=== PATIENT | male | born 1940 | race Caucasian/White ===

== ENCOUNTER → 2018-08-02 | Day surgery (SDC) | payer MEDICARE, BC ==
[~2018-08-02] MED LIST: ASPIR 8181 MG PO; ATORVASTATIN CA20 MG PO; BENEFIBER1 EAC1 PO; CITRACAL + D E1 EACH PO; FENTANYL CITRATE/PF 100MCG/2 ML INJ ONE; FLOMAX0.4 MG PO; GLIPIZIDE5 MG PO; LISINOPRIL2.5 MG PO; METFORMIN HCL500 M1 PO; MIDAZOLAM HCL 2 MG/2 ML VIAL ONE; PROPOFOL IV EMULSION 10 MG/ML 50 ML VIAL ONE
--- OUTSIDE RECORDS SUMMARY | 2018-08-02 05:59 | XMS REPORT | CCD ---
Author Author Auto Generated Organization [facility] Address Unknown Phone Unavailable Care Team Providers Care Veterinary Bacteriologist Name Role Phone [place] [facility] Allergies, Adverse Reactions, Alerts Substance Reaction Status NKDA Active Problem List Condition Effective Dates Status BPH - Benign prostatic hypertrophy Active DM - Diabetes mellitus Resolved HTN - Hypertension Resolved Medications Medication Instructions Start Date End Date Status morphine Sulfate 2 mg, 1 mL, Route: IVP, Drug form: 06/05/2013 06/05/2013 Completed INJ, ONCE, Dosing Weight 81.818, kg, Priority: STAT, Start date: 06/05/13 22:59:00, Stop date: 06/05/13 22:59:00 Zofran 4 mg, 2 mL, Route: IVP, Drug form: 06/05/2013 06/05/2013 Completed INJ, ONCE, Dosing Weight 81.818, kg, Priority: STAT, Start date: 06/05/13 22:23:00, Stop date: 06/05/13 22:23:00 Tylenol with Codeine 1 - 2 tab, PO, Q4H, PRN, 20 tab, 06/05/2013 06/07/2013 Completed #3 oral tablet Pain, Substitution Allowed, Maintenance morphine Sulfate 2 mg, 1 mL, Route: IVP, Drug form: 06/05/2013 06/05/2013 Completed INJ, ONCE, Dosing Weight 81.818, kg, Priority: STAT, Start date: 06/05/13 22:23:00, Stop date: 06/05/13 22:23:00 pneumococcal 0.5 ml, Route: IM, Drug Form: INJ, 06/08/2013 06/08/2013 Completed 23-valent vaccine Start date: 06/08/13 9:00:00, Stop date: 06/08/13 9:00:00 influenza virus 0.5 ml, Route: IM, Drug Form: SUSP, 06/08/2013 06/08/2013 Completed vaccine, inactivated Start date: 06/08/13 9:00:00, Stop date: 06/08/13 9:00:00 Immunizations Vaccine Date Status influenza virus vaccine, inactivated 06/08/2013 Auth (Verified) pneumococcal 23-valent vaccine 06/08/2013 Auth (Verified) Vital Signs Most recent to oldest [Reference Range]: 1 2 Height 162.56 cm (06/05/2013 16:49:00) Temperature Oral [96.4-99.1 DegF] 98.3 DegF (06/05/2013 23:35:00) 98.0 DegF (06/05/2013 16:49:00) Systolic Blood Pressure [90-140 mmHg] 141 mmHg *HI* (06/05/2013 23:35:00) 159 mmHg *HI* (06/05/2013 16:49:00) Diastolic Blood Pressure [60-90 mmHg] 75 mmHg (06/05/2013 23:35:00) 78 mmHg (06/05/2013 16:49:00) Respiratory Rate [14-20 BRMIN] 18 BRMIN (06/05/2013 23:35:00) 18 BRMIN (06/05/2013 16:49:00) Peripheral Pulse Rate [60-100 bpm] 81 bpm (06/05/2013 23:35:00) 70 bpm (06/05/2013 16:49:00) Weight 81.818 kg (06/05/2013 16:49:00) Results CHEMISTRY Most recent to oldest [Reference Range]: 1 Sodium Lvl [135-145 mEq/L] 143 mEq/L (06/05/2013 21:40:00) Potassium Lvl [3.5-5.1 mEq/L] 4.1 mEq/L (06/05/2013 21:40:00) Chloride Lvl [95-109 mEq/L] 107 mEq/L (06/05/2013 21:40:00) CO2 [24-32 mEq/L] 26 mEq/L (06/05/2013 21:40:00) AGAP [10.0-20.0 mEq/L] 14.1 mEq/L (06/05/2013 21:40:00) Creatinine Lvl [0.5-1.4 mg/dL] 1.2 mg/dL (06/05/2013 21:40:00) eGFR 60 mL/min/1.73m2 1 *NA* (06/05/2013:40:00) BUN [7-22 mg/dL] 16 mg/dL (06/05/2013:40:00) Glucose Lvl [70-99 mg/dL] 147 mg/dL 2 *HI* (06/05/2013:40:00) Calcium Lvl [8.5-10.5 mg/dL] 8.6 mg/dL (06/05/2013:40:00) 1Result Comment: The eGFR is calculated using the CKD-EPI formula. In most young, healthy individuals the eGFR will be >90 mL/min/1.73m2. The eGFR declines with age. An eGFR of 60-89 may be normal in some populations, particularly the elderly, for whom the CKD-EPI formula has not been extensively validated. Use of the eGFR is not recommended in the following populations: Individuals with unstable creatinine concentrations, including patients and those with serious co-morbid conditions. Patients with extremes in muscle mass or diet. The data above are obtained from the National Kid[employer] Disease Education Program ( NKDEP) which additionally recommends that when the eGFR is used in patients with extremes of body mass index for purposes of drug dosing, the eGFR should be mul tiplied by the estimated BMI. 2Interpretive Data: Adult reference range values reflect the clinical guidelines of the [employer]. HEMATOLOGY Most recent to oldest [Reference Range]: 1 WBC [3.7-10.4 K/CMM] 8.0 K/CMM (06/05/2013:40:00) RBC [4.70-6.10 M/CMM] 4.33 M/CMM *LOW* (06/05/2013:40:00) Hgb [14.0-18.0 g/dL] 12.9 g/dL *LOW* (06/05/2013:40:00) Hct [42.0-54.0 %] 39.0 % *LOW* (06/05/2013:40:00) MCV [80.0-94.0 fL] 90.1 fL (06/05/2013:40:00) MCH [27.0-31.0 pg] 29.8 pg (06/05/2013 21:40:00) MCHC [32.0-36.0 g/dL] 33.0 g/dL (06/05/2013 21:40:00) RDW [11.5-14.5 %] 12.7 % (06/05/2013 21:40:00) Platelet [133-450 K/CMM] 195 K/CMM (06/05/2013 21:40:00) MPV [7.4-10.4 fL] 10.6 fL *HI* (06/05/2013 21:40:00) Segs [45.0-75.0 %] 63.9 % (06/05/2013 21:40:00) Lymphocytes [20.0-40.0 %] 23.2 % (06/05/2013 21:40:00) Monocytes [2.0-12.0 %] 9.2 % (06/05/2013 21:40:00) Eosinophils [0.0-4.0 %] 1.9 % (06/05/2013 21:40:00) Basophils [0.0-1.0 %] 1.8 % *HI* (06/05/2013 21:40:00) Segs-Bands # [1.5-8.1 K/CMM] 5.1 K/CMM (06/05/2013 21:40:00) Lymphocytes # [1.0-5.5 K/CMM] 1.9 K/CMM (06/05/2013 21:40:00) Monocytes # [0.0-0.8 K/CMM] 0.7 K/CMM (06/05/2013 21:40:00) Eosinophils # [0.0-0.5 K/CMM] 0.2 K/CMM (06/05/2013 21:40:00) Basophils # [0.0-0.2 K/CMM] 0.1 K/CMM (06/05/2013 21:40:00)
--- OUTSIDE RECORDS SUMMARY | 2018-08-02 05:59 | XMS REPORT | Continuity of Care Document ---
Author Author [facility] Interface Address Unknown Phone Unavailable Problems Problem Status Onset Date Classification Date Reported Comments Source K46.9 / M62.08 Active 02/01/2017 [facility] NECK MASS Active 01/24/2016 [facility] UNK Active 12/11/2015 [facility] LEFT LEG RADICULOPATHY Active 06/07/2013 [facility] LEFT LEG PAIN Active 06/07/2013 [facility] LEG PAIN Active 06/05/2013 [facility] Bleeding internal hemorrhoids<sup>1, 2</sup> Active 12/18/2011 Problem 02/06/2017 Data migrated from [employer] on 01/28/15. [facility] Rectal hemorrhage<sup>3, 4</sup> Active 12/18/2011 Problem 02/06/2017 Data migrated from [employer] on 01/28/15. [facility] Residual hemorrhoidal skin tags<sup>5, 6</sup> Active 12/18/2011 Problem 02/06/2017 Data migrated from [employer] on 01/28/15. [facility] V12.72 Active 12/18/2011 [facility] BPH - Benign prostatic hypertrophy Active Problem 02/06/2017 [facility] CAD - Coronary artery disease Active Problem 02/06/2017 [facility] DM - Diabetes mellitus Active Problem 02/06/2017 [facility] Heart murmur Active Problem 02/06/2017 [facility] HTN - Hypertension Active Problem 02/06/2017 [facility] Obesity Active Problem 02/06/2017 [facility] BPH - Benign prostatic hypertrophy Active Problem 06/10/2013 [facility] DM - Diabetes mellitus Resolved Problem 06/10/2013 [facility] HTN - Hypertension Resolved Problem 06/10/2013 [facility] PRSNL HST COLONIC POLYPS Active [facility] NEURALGIA/NEURITIS NOS Active [facility] RESIDUAL HEMORRHOIDAL SKIN TAGS Active [facility] PERSONAL HISTORY OF COLONIC POLYPS Active [facility] OTHER HEMORRHOIDS Active [facility] LOCALIZED SWELLING, MASS AND LUMP, NECK Active [facility] UNSPECIFIED ABDOMINAL HERNIA WITHOUT OBS Active [facility] SEPARATION OF MUSCLE (NONTRAUMATIC), OTH Active [facility] Medications Medication Details Route Status Patient Instructions Ordering Provider Order Date Source ketOROLAC (ANES) IV, ONCE Inactive 01/15/2016 [facility] fentaNYL (ANES) Route: IV, Drug form: INJ, ONCE, Stop date: 01/15/16 13:00:00 CDT Inactive 01/15/2016 [facility] ondansetron (ANES) Route: IV, Drug form: INJ, ONCE, Stop date: 01/15/16 13:00:00 CDT Inactive 01/15/2016 [facility] propofol (ANES) Route: IV, Drug form: INJ, ONCE, Stop date: 01/15/16 12:55:00 CDT Inactive 01/15/2016 [facility] lidocaine (ANES) Route: IV, Drug form: INJ, ONCE, Stop date: 01/15/16 12:55:00 CDT Inactive 01/15/2016 [facility] midazolam (ANES) Route: IV, Drug form: SOLN, ONCE, Stop date: 01/15/16 12:55:00 CDT Inactive 01/15/2016 [facility] acetaminophen (ANES) (ANES) Route: IV, Drug form: INJ, Start date: 01/15/16 12:25:00 CDT, Stop date: 01/15/16 13:25:00 CDT Inactive 01/15/2016 [facility] Lactated Ringers Injection IV (ANES) (ANES) Route: IV, Total Volume: 500, Start date: 01/15/16 12:10:00 CDT, Stop date: 01/15/16 13:10:00 CDT Inactive 01/15/2016 [facility] Acetaminophen 300 MG / Codeine Phosphate 30 MG Oral Tablet [Tylenol with Codeine #3] 1 tab, PO, Q6H, PRN for pain, # 30 tab, 0 Refill(s) Active 01/15/2016 [facility] Calcium Chloride 0.0014 MEQ/ML / Potassium Chloride 0.004 MEQ/ML / Sodium Chloride 0.103 MEQ/ML / Sodium Lactate 0.028 MEQ/ML Injectable Solution 500 mL, Rate: 25 ml/hr, Infuse over: 20 hr, Route: IV, Dosing Weight 85 kg, Total Volume: 500, Start date: 01/15/16 11:15:00 CDT, Duration: 30 day, Stop date: 02/14/16 11:14:00 CDT Inactive 01/15/2016 [facility] Normosol-R 1,000 mL, Rate: 25 ml/hr, Infuse over: 40 hr, Route: IV, Dosing Weight 85 kg, Total Volume: 1,000, Start date: 01/15/16 11:15:00 CDT, Duration: 30 day, Stop date: 02/14/16 11:14:00 CDT Inactive 01/15/2016 [facility] Glucose 50 MG/ML / Sodium Chloride 0.154 MEQ/ML Injectable Solution 1,000 mL, Rate: 25 ml/hr, Infuse over: 40 hr, Route: IV, Dosing Weight 85 kg, Total Volume: 1,000, Start date: 01/15/16 11:15:00 CDT, Duration: 30 day, Stop date: 02/14/16 11:14:00 CDT Inactive 01/15/2016 [facility] Sodium Chloride 0.154 MEQ/ML Injectable Solution 500 mL, Rate: 125 ml/hr, Infuse over: 4 hr, Route: IV, Dosing Weight 85 kg, Total Volume: 500, Start date: 01/15/16 11:15:00 CDT, Duration: 30 day, Stop date: 02/14/16 11:14:00 CDT Inactive 01/15/2016 [facility] Exparel 20 mL, Route: InFILtration(local), Drug Form: INJ, Dosing Weight 85, kg, ONCALL, For Hemorrhoidectomy, Start date: 01/15/16 7:00:00 CDT, Duration: 30 day, Stop date: 02/14/16 6:59:00 CDTNotes: (Same as: Exparel) NOT FOR IV use Postoperative analgesia: Infiltration (local): Dose is based on surgical site and volume required to cover the area (in general, the maximum total dose is 266 mg). Bunionectomy: 7 mL into the tissues surrounding the osteotomy and 1 mL into the subcutaneous tissue of the surgical site (total dose=8 mL [106 mg]) Hemorrhoidectomy: 30 mL (20 mL vial diluted with 10 mL NS) divided and administered as 6 injections of 5 mL each (total dose=30 mL [266 mg]) No Longer Active 01/15/2016 [facility] Insulin Glargine 100 UNT/ML Injectable Solution [Lantus] 20 unit, SUB-Q, Bedtime, # 10 mL, 3 Refill(s) Active 01/08/2016 [facility] Aspirin Low Dose 81 mg oral tablet =1 tab, PO, Daily, # 30 tab, 1 Refill(s) Active 01/08/2016 [facility] Percocet 10/325 oral tablet 1 tab, PO, Q6H, PRN, 60 tab, as needed for pain, Substitution Allowed, Maintenance Active [place] 06/09/2013 [facility] Medrol Dosepak 4 mg Tablet As directed on package instructions, PO, Daily, Take with or without food, 1 Pack, Substitution AllowedTake with or without food Active [facility] 06/09/2013 [facility] Neurontin 100 mg oral capsule 100 mg, 1 cap, PO, TID, 90 cap, Substitution Allowed, CAP Active [facility] 06/09/2013 [facility] Lactated Ringers Injection IV 1000 mL 1,000 mL, Rate: 25 ml/hr, Infuse over: 40 hr, Route: IV, Dosing Weight 80.9 kg, Total Volume: 1,000, Start date: 06/09/13 13:15:00, Duration: 30 day, Stop date: 07/09/13 13:14:00 Inactive [place] 06/09/2013 [facility] Travatan Z 0.004% ophthalmic solution 1 drp, Route: BOTH EYES, Drug Form: SOLN, Dosing Weight 80.9, kg, QPM, Start date: 06/08/13 17:00:00, Duration: 30 day, Stop date: 07/07/13 17:00:00(Same As: Travatan) No Longer Active [facility] 06/08/2013 [facility] tamsulosin 0.4 mg, 1 cap, Route: PO, Drug form: CAP, QPM, Dosing Weight 80.9, kg, Start date: 06/08/13 17:00:00, Duration: 30 day, Stop date: 07/07/13 17:00:00(Same As: Flomax) "Do Not Crush" No Longer Active [facility] 06/08/2013 [facility] atorvastatin 20 mg, 2 tab, Route: PO, Drug form: TAB, QPM, Dosing Weight 80.9, kg, Start date: 06/08/13 17:00:00, Duration: 30 day, Stop date: 07/07/13 17:00:00(Same As: Lipitor) No Longer Active [facility] 06/08/2013 [facility] Neurontin 100 mg oral capsule 100 mg, 1 cap, Route: PO, Drug form: CAP, TID, Dosing Weight 80.9, kg, Start date: 06/08/13 13:00:00, Duration: 30 day, Stop date: 07/08/13 9:00:00(Same as: Neurontin) No Longer Active [facility] 06/08/2013 [facility] Medrol Dosepak 4 mg Tablet 4 mg, 1 tab, Route: PO, Drug form: TAB, QID-After Meals, Dosing Weight 80.9, kg, Start date: 06/08/13 13:00:00, Duration: 6 day, Stop date: 06/14/13 8:30:00(Same as :Medrol) Take with food No Longer Active [facility] 06/08/2013 [facility] [place] 5/325 oral tablet 2 tab, Route: PO, Drug Form: TAB, Dosing Weight 80.9, kg, Q6H, PRN Pain, Start date: 06/08/13 10:02:00, Duration: 30 day, Stop date: 07/08/13 10:01:00(Same as: [place] 325/5) Do not exceed 4gm/day of acetaminophen. No Longer Active [facility] 06/08/2013 [facility] pneumococcal 23-valent vaccine 0.5 ml, Route: IM, Drug Form: INJ, Daily, Start date: 06/08/13 9:00:00, Duration: 1 doses or times, Stop date: 06/08/13 9:00:00(Same as: Pneumovax 23) Refrigerate Inactive SYSTEM 06/08/2013 [facility] influenza virus vaccine, inactivated 0.5 ml, Route: IM, Drug Form: SUSP, Daily, Start date: 06/08/13 9:00:00, Duration: 1 doses or times, Stop date: 06/08/13 9:00:00(Same as: Fluzone) Inactive [facility] 06/08/2013 [facility] timolol ophthalmic 0.5% gel forming solution 1 drp, Route: BOTH EYES, QAM, Drug form: GFS, Start date: 06/08/13 9:00:00, Duration: 30 day, Stop date: 07/07/13 9:00:00 No Longer Active [facility] 06/08/2013 [facility] Citrucel 500 mg, Route: PO, Daily, Dosing Weight 80.9, kg, Start date: 06/08/13 9:00:00, Duration: 30 day, Stop date: 07/07/13 9:00:00 No Longer Active [facility] 06/08/2013 [facility] lisinopril 2.5 mg, 0.5 tab, Route: PO, Drug form: TAB, Daily, Dosing Weight 80.9, kg, Start date: 06/08/13 9:00:00, Duration: 30 day, Stop date: 07/07/13 9:00:00(Same as: Prinivil, Zestril) No Longer Active [facility] 06/08/2013 [facility] glipiZIDE 10 mg oral tablet, extended release 10 mg, 1 tab, Route: PO, Drug form: ERTAB, BID, Dosing Weight 80.9, kg, Start date: 06/08/13 9:00:00, Duration: 30 day, Stop date: 07/07/13 17:00:00(Same as: Glucotrol XL) "Do Not Crush" 30 min before meals. No Longer Active [facility] 06/08/2013 [facility] ferrous sulfate 325 mg, 1 tab, Route: PO, Drug form: ECTAB, Daily, Dosing Weight 80.9, kg, Start date: 06/08/13 9:00:00, Duration: 30 day, Stop date: 07/07/13 9:00:00Give with food. "Do Not Crush" No Longer Active [facility] 06/08/2013 [facility] [place] 5 microgram, Route: SUB-Q, Drug form: SOLN, BID, Dosing Weight 80.9, kg, Start date: 06/08/13 9:00:00, Duration: 30 day, Stop date: 07/07/13 17:00:00 No Longer Active [facility] 06/08/2013 [facility] Plavix 75 mg, 1 tab, Route: PO, Drug form: TAB, Daily, Dosing Weight 80.9, kg, Start date: 06/08/13 9:00:00, Duration: 30 day, Stop date: 07/07/13 9:00:00(Same As: Plavix) No Longer Active [facility] 06/08/2013 [facility] Timolol 0.5% opthalmic gel forming solution Timolol 0.5% opthalmic gel forming solution, 1 drp, Drug form: MISC, Route: BOTH EYES, QAM, 06/08/13 9:00:00, Duration: 30 day, Stop date: 07/07/13 9:00:00 No Longer Active [facility] 06/08/2013 [facility] Citrucel 500mg po daily*Patients own med* Citrucel 500mg po daily*Patients own med*, 500 mg, Drug form: MISC, Route: PO, Daily, 06/08/13 9:00:00, Duration: 30 day, Stop date: 07/07/13 9:00:00 No Longer Active [facility] 06/08/2013 [facility] [place] 5 microgram Sub-Q BID*Patient's own med [place] 5 microgram Sub-Q BID*Patient's own med, 5 microgram, Drug form: MISC, Route: SUB-Q, BID, 06/08/13 9:00:00, Duration: 30 day, Stop date: 07/07/13 17:00:00 No Longer Active [facility] 06/08/2013 [facility] morphine Sulfate 3 mg, 1.5 mL, Route: IVP, Drug form: INJ, Q4H, Dosing Weight 80.9, kg, PRN Pain Score 7-10, Start date: 06/08/13 0:05:00, Duration: 30 day, Stop date: 07/08/13 0:04:00(Same as:MORPhine Sulfate) No Longer Active [facility] 06/08/2013 [facility] enoxaparin 40 mg, 0.4 mL, Route: SUB-Q, Drug form: INJ, [id number], Dosing Weight 80.9, kg, Start date: 06/07/13 19:00:00, Duration: 30 day, Stop date: 07/06/13 19:00:00(Same as: Lovenox) No Longer Active [place] 06/08/2013 [facility] insulin aspart 15 unit, 0.15 mL, Route: SUB-Q, Drug form: SOLN, TID-Before Meals, Dosing Weight 80.9, kg, PRN Blood Glucose Results, Start date: 06/07/13 18:52:00, Duration: 30 day, Stop date: 07/07/13 18:51:00Roll in palms of hands gently; Do not shake vigorously. (Same as: NovoLog) "single patient use only" Stable for 28 days at room temperature. Expires in days from Date No Longer Active [facility] 06/07/2013 [facility] glucagon 1 mg, Route: IM, Drug form: PDR/INJ, PRN, Dosing Weight 80.9, kg, PRN Blood Glucose Results, Start date: 06/07/13 18:52:00, Duration: 30 day, Stop date: 07/07/13 17:51:00 No Longer Active [facility] 06/07/2013 [facility] Dextrose 50% Syringe 12.5 gm, 25 mL, Route: IVP, Drug Form: INJ, Dosing Weight 80.9, kg, PRN, PRN Blood Glucose Results, Start date: 06/07/13 18:52:00, Duration: 30 day, Stop date: 07/07/13 17:51:00 No Longer Active [facility] 06/07/2013 [facility] Dextrose 50% in Water IV 50 mL, Route: IVP, Start date: 06/07/13 18:39:00, Duration: 30 day, Stop date: 07/07/13 17:38:00, PRN Blood Glucose Results Inactive [facility] 06/07/2013 [facility] glucagon 1 mg, Route: IM, Drug form: PDR/INJ, PRN, PRN Blood Glucose Results, Start date: 06/07/13 18:39:00, Duration: 30 day, Stop date: 07/07/13 17:38:00 Inactive [facility] 06/07/2013 [facility] NovoLog FlexPen 18 unit, 0.18 mL, Route: SUB-Q, Drug form: SOLN, Sliding Scale, PRN Blood Glucose Results, Start date: 06/07/13 18:39:00, Duration: 30 day, Stop date: 07/07/13 17:38:00Roll in palms of hands gently; Do not shake vigorously. (Same as: NovoLog) "single patient use only" Stable for 28 days at room temperature. Expires in days from Date Inactive [facility] 06/07/2013 [facility] morphine Sulfate 2 mg, 1 mL, Route: IV, Drug form: INJ, Q6H, Dosing Weight 80.909, kg, PRN Pain Score 4-6, Start date: 06/07/13 18:19:00, Duration: 30 day, Stop date: 07/07/13 18:18:00(Same as:MORPhine Sulfate) No Longer Active [facility] 06/07/2013 [facility] Saline Flush 0.9% 5 ml, Route: IVP, Drug Form: INJ, Dosing Weight 80.909, kg, PRN, PRN Line Flush, Start date: 06/07/13 18:10:00, Duration: 30 day, Stop date: 07/07/13 17:09:00(Same as: BD Posiflush) No Longer Active [facility] 06/07/2013 [facility] Travatan Z 0.004% ophthalmic solution 1 drp, BOTH EYES, QPM, 3 ml, Substitution Allowed, Maintenance, SOLN Active [facility] 06/07/2013 [facility] timolol ophthalmic 0.5% gel forming solution 1 drp, BOTH EYES, QAM, Substitute Allowed Active [facility] 06/07/2013 [facility] ferrous sulfate 325 mg oral enteric coated tablet 325 mg, 1 tab, PO, Daily, 30 tab, Substitution Allowed, ECTAB Active [facility] 06/07/2013 [facility] [place] 10 mcg/0.04 mL subcutaneous solution 10 microgram, SUB-Q, BID, 2 ml, Substitution Allowed, SOLN Active [facility] 06/07/2013 [facility] Sodium Chloride 0.9% IV 1,000 mL 1,000 mL, Rate: 75 ml/hr, Infuse over: 13.3 hr, Route: IV, Dosing Weight 80.909 kg, Total Volume: 1,000, Priority: STAT, Start date: 06/07/13 12:54:00, Duration: 1 doses or times, Stop date: 06/08/13 2:11:00 Inactive [place] 06/07/2013 [facility] Kayexalate 30 gm, 120 mL, Route: PO, Drug form: SUSP, ONCE, Dosing Weight 80.909, kg, Priority: STAT, Start date: 06/07/13 12:54:00, Stop date: 06/07/13 12:54:00(sodium polystyrene sulfonate 15 gm/60 ml ALVINA) Shake well before use. (Same as: [place], SPS) Inactive [place] 06/07/2013 [facility] Tylenol with Codeine #3 oral tablet 1 - 2 tab, PO, Q4H, PRN, 20 tab, Pain, Substitution Allowed, Maintenance No Longer Active [facility] 06/06/2013 [facility] morphine Sulfate 2 mg, 1 mL, Route: IVP, Drug form: INJ, ONCE, Dosing Weight 81.818, kg, Priority: STAT, Start date: 06/05/13 22:59:00, Stop date: 06/05/13 22:59:00(Same as:MORPhine Sulfate) Inactive [facility] 06/06/2013 [facility] Zofran 4 mg, 2 mL, Route: IVP, Drug form: INJ, ONCE, Dosing Weight 81.818, kg, Priority: STAT, Start date: 06/05/13 22:23:00, Stop date: 06/05/13 22:23:00(Same as: Zofran) Inactive [facility] 06/06/2013 [facility] morphine Sulfate 2 mg, 1 mL, Route: IVP, Drug form: INJ, ONCE, Dosing Weight 81.818, kg, Priority: STAT, Start date: 06/05/13 22:23:00, Stop date: 06/05/13 22:23:00(Same as:MORPhine Sulfate) Inactive [facility] 06/06/2013 [facility] Lactated Ringers IV 1,000 mL 1,000 mL 1,000 mL, Rate: 40 ml/hr, Infuse over: 25 hr, Route: IV, Dosing Weight 80.909 kg, Total Volume: 1,000, Start date: 02/09/12 8:58:00, Duration: 30 day, Stop date: 03/10/12 8:57:00 IV No Longer Active [place] 02/09/2012 [facility] tamsulosin 0.4 mg oral capsule 0.4 mg, 1 cap, PO, Daily, 30 cap, Substitution Allowed, CAP PO Active 02/04/2012 [facility] Citrucel Substitution Allowed Active 02/04/2012 [facility] lisinopril 2.5 mg oral tablet 2.5 mg, 1 tab, PO, Daily, 30 tab, Substitution Allowed, TAB PO Active 02/04/2012 [facility] Plavix 75 mg oral tablet 75 mg, 1 tab, PO, Daily, 30 tab, Substitution Allowed, TAB PO Active 02/04/2012 [facility] glipiZIDE 10 mg oral tablet, extended release 10 mg, 1 tab, PO, BID, 30 tab, Substitution Allowed PO Active 02/04/2012 [facility] atorvastatin 20 mg oral tablet 20 mg, 1 tab, PO, Daily, 30 tab, Substitution Allowed, TAB PO Active 02/04/2012 [facility] metFORmin 850 mg, PO, TID, Substitution Allowed PO Active 02/04/2012 [facility] Allergies, Adverse Reactions, Alerts Substance Category Reaction Severity Reaction type Status Date Reported Comments Source Immunizations Immunization Date Given Site Status Last Updated Comments Source pneumococcal 23-valent vaccine 06/08/2013 [facility], inactivated 06/08/2013 [facility]ent [facility] 06/08/2013 completed [facility] influenza virus vaccine, inactivated 06/08/2013 [facility] Results Order Name Results Value Reference Range Date Interpretation Comments Source CHEM PANEL eGFR 65 mL/min/1.73m2 02/03/2017 Result Comment: The eGFR is calculated using the [...] from the National Kidney Disease Education Program (NKDEP) which additionally recommends that when the eGFR is used in patients with extremes of body mass index for purposes of drug dosing, the eGFR should be multiplied by the estimated BMI. [facility] CHEM PANEL POC Creatinine 1.1 mg/dL 0.5 - 1.4 02/03/2017 [facility] Abdomen/Pelvis w IV contrast CT Abdomen/Pelvis w IV contrast CT Patient Name: VASILE JARRETT : 1940; Age: 76 years y/o Male MR: [id number] Study: Abdomen/Pelvis w IV contrast CT 02/03/2017 8:35 AM CDT Ordering Physician: Katerin Vanegas DO Clinical Indication: Shila - CT DLP - 1186 mGycm; 100 visi IV \\T\\ 25 cc omni oral - abdominal hernia; patient states he has a bulge in mid abdomen area - no symptoms; Comparison: 06/05/2013 TECHNIQUE: Helical imaging was performed from the diaphragm through the symphysis with multiplanar reformations obtained after intravenous administration of 100 mL of Omnipaque. Oral contrast administered. FINDINGS: LOWER CHEST: The lung bases are clear without significant pleural effusion bilaterally. SOLID ORGANS: No focal liver or splenic abnormality. Kidneys are unremarkable bilaterally. No pelvocaliectasis or ureterectasis bilaterally. The adrenals, pancreas are unremarkable. Cholelithiasis. No gallbladder wall thickening or surrounding inflammation. No biliary ductal dilatation. RETROPERITONEUM: No abdominal or pelvic adenopathy. The abdominal aorta is unremarkable. PELVIS: Large prostate similar to prior exam. No new pelvic mass. Bladder is unremarkable. BOWEL: No acute bowel abnormality identified in the abdomen or pelvis. Suspect previous right hemicolectomy. Diverticulosis of the descending and sigmoid colonic segments without evidence for diverticulitis or colitis. PERITONEUM: No free intraperitoneal air. No abnormal fluid collection identified in the abdomen or pelvis. MUSCULOSKELETAL: No significant osseous abnormality. There is diastases of the rectus muscles up to 8 cm at the level of the umbilicus. This forms a shallow [place] ventral hernia with normal-appearing, nonobstructed small bowel loops beneath the umbilicus. Additionally noted are small fat-containing bilateral inguinal hernias. IMPRESSION: 8 cm diastases of the rectus muscles near the umbilicus, forming a shallow [place] umbilical hernia. There is no evidence for incarceration or obstruction of bowel. Diverticulosis of the descending and sigmoid colon, without evidence of colitis or diverticulitis. Cholelithiasis. No acute biliary findings noted. Small bilateral inguinal hernia. Large prostate. Urinary bladder appears otherwise normal. No other pelvic mass seen. SL: [id number] 02/03/2017 - - Read by: Paul Aguilar MD Dictated Date/time: 02/03/17 11:36 Electronically Signed by: Paul Aguilar MD 02/03/17 11:46 FINAL REPORT [facility] Neck soft tissue wo contrast CT Neck soft tissue wo contrast CT CT SOFT TISSUE NECK WITHOUT CONTRAST WITH SAGITTAL AND CORONAL REFORMATTED IMAGES HISTORY: Neck mass, localized swelling, mass, and lump of neck, patient reports abnormality seen on outside ultrasound of the carotid vessels COMPARISON: None available. FINDINGS: No soft tissue mass or fluid collection is seen within the neck. No cervical adenopathy. No mucosal lesion of the aerodigestive tract is identified. The salivary glands and thyroid gland appear normal. There is minimal atherosclerotic calcification at the bilateral carotid bifurcations. The lung apices are clear. Mild degenerative disc space narrowing and moderate degenerative endplate spurring in the mid and lower cervical spine. IMPRESSION: No mass or fluid collection is seen within the neck. SL: [id number] 01/29/2016 - - Read by: Demarco Washington MD Dictated Date/time: 01/29/16 10:30 Electronically Signed by: Demarco Washington MD 01/29/16 10:37 FINAL REPORT [facility] ELECTROLYTES AGAP 12.8 meq/L 10.0 - 20.0 01/08/2016 [facility] ELECTROLYTES Chloride Lvl 104 meq/L 95 - 109 01/08/2016 [facility] ELECTROLYTES CO2 25 meq/L 24 - 32 01/08/2016 [facility] ELECTROLYTES Calcium Lvl 8.5 mg/dL 8.5 - 10.5 01/08/2016 [facility] ELECTROLYTES eGFR 62 mL/min/1.73m2 01/08/2016 Result Comment: The eGFR is calculated using the [...] from the National Kidney Disease Education Program (NKDEP) which additionally recommends that when the eGFR is used in patients with extremes of body mass index for purposes of drug dosing, the eGFR should be multiplied by the estimated BMI. [facility] ELECTROLYTES Glucose Lvl 163 mg/dL 70 - 99 01/08/2016 [facility] ELECTROLYTES BUN 17 mg/dL 7 - 22 01/08/2016 [facility] ELECTROLYTES Creatinine Lvl 1.15 mg/dL 0.50 - 1.40 01/08/2016 [facility] ELECTROLYTES Sodium Lvl 137 meq/L 135 - 145 01/08/2016 [facility] ELECTROLYTES Potassium Lvl 4.8 meq/L 3.5 - 5.1 01/08/2016 [facility] HEMATOLOGY INR 0.98 0.85 - 1.17 01/08/2016 [facility] HEMATOLOGY PT 13.3 s 12.0 - 14.7 01/08/2016 [facility] HEMATOLOGY PTT 29.7 s 22.9 - 35.8 01/08/2016 [facility] HEMATOLOGY Hct 37.5 % 42.0 - 54.0 01/08/2016 [facility] HEMATOLOGY Hgb 12.6 g/dL 14.0 - 18.0 01/08/2016 [facility] BEDSIDE GLUCOSE TESTING Glucose POC 305 mg/dL 70 - 99 06/09/2013 [place] 1Interpretive Data: Upper Reportable Limit: 200 mg/dL. [facility] BEDSIDE GLUCOSE TESTING Glucose POC 150 mg/dL - 99 06/09/2013 [place] 2Interpretive Data: Upper Reportable Limit: 200 mg/dL. [facility] BEDSIDE GLUCOSE TESTING Gluc POC Comment 1 Notify CRISTA 06/09/2013 [facility] BEDSIDE GLUCOSE TESTING Gluc POC Comment 1 Notify CRISTA 06/09/2013 [facility] BEDSIDE GLUCOSE TESTING Glucose POC 225 mg/dL 70 - 99 06/09/2013 [place] 3Interpretive Data: Upper Reportable Limit: 200 mg/dL. [facility] BEDSIDE GLUCOSE TESTING Gluc POC Comment 1 Notify CRISTA 06/09/2013 [facility] CHEMISTRY eGFR 55 mL/min/1.73m2 06/08/2013 4Result Comment: The eGFR is calculated using the [...] from the National Kidney Disease Education Program (NKDEP) which additionally recommends that when the eGFR is used in patients with extremes of body mass index for purposes of drug dosing, the eGFR should be multiplied by the estimated BMI. [facility] CHEMISTRY Glucose Lvl 177 mg/dL 70 - 99 06/08/2013 [place] 6Interpretive Data: Adult reference range values reflect the clinical guidelines of the [place] [employer]. [facility] CHEMISTRY BUN 15 mg/dL 7 - 22 06/08/2013 Normal [facility] CHEMISTRY Creatinine Lvl 1.3 mg/dL 0.5 - 1.4 06/08/2013 Normal [facility] CHEMISTRY CO2 28 meq/L 24 - 32 06/08/2013 Normal [facility] CHEMISTRY B/C Ratio 12 6 - 25 06/08/2013 Normal [facility] CHEMISTRY Globulin 2.8 g/dL 2.0 - 4.0 06/08/2013 Normal [facility] CHEMISTRY Bili Total 0.6 mg/dL 0.2 - 1.3 06/08/2013 Normal [facility] CHEMISTRY ASPARTATE TRANSAMINASE 12 unit/L 0 - 37 06/08/2013 Normal [facility] CHEMISTRY Total Protein 6.1 g/dL 6.4 - 8.4 06/08/2013 LOW [facility] CHEMISTRY Albumin Lvl 3.3 g/dL 3.5 - 5.0 06/08/2013 LOW [facility] CHEMISTRY A/G Ratio 1.2 0.7 - 1.6 06/08/2013 Normal [facility] CHEMISTRY ALANINE AMINOTRANSFERASE 22 unit/L 0 - 65 06/08/2013 Normal [facility] CHEMISTRY Alk Phos 55 unit/L 39 - 136 06/08/2013 Normal [facility] CHEMISTRY AGAP 12.6 meq/L 10.0 - 20.0 06/08/2013 Normal [facility] CHEMISTRY Calcium Lvl 8.1 mg/dL 8.5 - 10.5 06/08/2013 LOW [facility] CHEMISTRY Sodium Lvl 142 meq/L 135 - 145 06/08/2013 Normal [facility] CHEMISTRY Chloride Lvl 105 meq/L 95 - 109 06/08/2013 Normal [facility] CHEMISTRY Potassium Lvl 3.6 meq/L 3.5 - 5.1 06/08/2013 Normal [facility] HEMATOLOGY MCHC 33.4 g/dL 32.0 - 36.0 06/08/2013 Normal [facility] HEMATOLOGY RDW 12.5 % 11.5 - 14.5 06/08/2013 Normal [facility] HEMATOLOGY MPV 11.1 fL 7.4 - 10.4 06/08/2013 HI [facility] HEMATOLOGY Platelet 173 K/CMM 133 - 450 06/08/2013 [facility] HEMATOLOGY Hgb 11.7 g/dL 14.0 - 18.0 06/08/2013 LOW [facility] HEMATOLOGY RBC X 10x6 3.96 M/CMM 4.70 - 6.10 06/08/2013 LOW [facility] HEMATOLOGY MCV 88.6 fL 80.0 - 94.0 06/08/2013 [facility] HEMATOLOGY Hct 35.1 % 42.0 - 54.0 06/08/2013 LOW [facility] HEMATOLOGY MCH 29.6 pg 27.0 - 31.0 06/08/2013 [facility] HEMATOLOGY WBC X 10x3 5.8 K/CMM 3.7 - 10.4 06/08/2013 [facility] HEMATOLOGY Monocytes # 0.8 K/CMM 0.0 - 0.8 06/08/2013 [facility] HEMATOLOGY Basophils # 0.0 K/CMM 0.0 - 0.2 06/08/2013 [facility] HEMATOLOGY Eosinophils # 0.1 K/CMM 0.0 - 0.5 06/08/2013 [facility] HEMATOLOGY Eosinophils 2.0 % 0.0 - 4.0 06/08/2013 [facility] HEMATOLOGY Basophils 0.4 % 0.0 - 1.0 06/08/2013 [facility] HEMATOLOGY Segs-Bands # 3.8 K/CMM 1.5 - 8.1 06/08/2013 [facility] HEMATOLOGY Lymphocytes 19.6 % 20.0 - 40.0 06/08/2013 LOW [facility] HEMATOLOGY Monocytes 13.1 % 2.0 - 12.0 06/08/2013 [facility] HEMATOLOGY Segs 64.9 % 45.0 - 75.0 06/08/2013 Normal [facility] HEMATOLOGY Lymphocytes # 1.1 K/CMM 1.0 - 5.5 06/08/2013 [facility] URINALYSIS UA Urobilinogen <=1.0 mg/dL 0.1 - 1.0 06/07/2013 [facility] URINALYSIS UA Sq Epi None Seen 06/07/2013 [facility] URINALYSIS UA Bacteria Occasional /HPF None Seen 06/07/2013 [facility] URINALYSIS UA Mucus Few /LPF None Seen 06/07/2013 [facility] URINALYSIS UA RBC 1 /HPF 0 - 2 06/07/2013 Normal [facility] URINALYSIS UA Color Yellow *NA* (06/07/2013 09:05:46) Yellow 06/07/2013 [facility] URINALYSIS UA Spec Grav 1.020 <=1.030 06/07/2013 Normal [facility] URINALYSIS UA pH 5.0 5.0 - 8.0 06/07/2013 Normal [facility] URINALYSIS UA Turbidity Clear (06/07/2013 09:05:46) Clear 06/07/2013 Normal [facility] URINALYSIS UA Leuk Est Negative (06/07/2013 09:05:46) Negative 06/07/2013 Normal [facility] URINALYSIS UA WBC 1 /HPF 0 - 5 06/07/2013 Normal [facility] URINALYSIS UA Glucose 50 mg/dL Negative 06/07/2013 ABN [facility] URINALYSIS UA Ketones Trace mg/dL Negative 06/07/2013 ABN [facility] URINALYSIS UA Bili Negative *NA* (06/07/2013 09:05:46) Negative 06/07/2013 [facility] URINALYSIS UA Blood Negative (06/07/2013 09:05:46) Negative 06/07/2013 Normal [facility] URINALYSIS UA Nitrite Negative (06/07/2013 09:05:46) Negative 06/07/2013 Normal [facility] URINALYSIS UA Protein Negative mg/dL Negative 06/07/2013 Normal [facility] CHEMISTRY Hgb A1C 7.1 % <=5.6 06/07/2013 HI [facility] CHEMISTRY AGAP 13.3 meq/L 10.0 - 20.0 06/07/2013 Normal [facility] CHEMISTRY eGFR 85 mL/min/1.73m2 06/07/2013 5Result Comment: The eGFR is calculated using the [...] from the National Kidney Disease Education Program (NKDEP) which additionally recommends that when the eGFR is used in patients with extremes of body mass index for purposes of drug dosing, the eGFR should be multiplied by the estimated BMI. [facility] CHEMISTRY CO2 25 meq/L 24 - 32 06/07/2013 Normal [facility] CHEMISTRY Creatinine Lvl 0.9 mg/dL 0.5 - 1.4 06/07/2013 Normal [facility] CHEMISTRY Calcium Lvl 8.7 mg/dL 8.5 - 10.5 06/07/2013 Normal [facility] CHEMISTRY Glucose Lvl 227 mg/dL 70 - 99 06/07/2013 [place] 7Interpretive Data: Adult reference range values reflect the clinical guidelines of the [place] [employer]. [facility] CHEMISTRY BUN 13 mg/dL 7 - 22 06/07/2013 Normal [facility] CHEMISTRY Sodium Lvl 136 meq/L 135 - 145 06/07/2013 Normal [facility] CHEMISTRY Chloride Lvl 103 meq/L 95 - 109 06/07/2013 Normal [facility] CHEMISTRY Potassium Lvl 5.3 meq/L 3.5 - 5.1 06/07/2013 HI [facility] HEMATOLOGY Segs-Bands # 5.5 K/CMM 1.5 - 8.1 06/07/2013 Normal [facility] HEMATOLOGY Lymphocytes # 0.6 K/CMM 1.0 - 5.5 06/07/2013 LOW [facility] HEMATOLOGY Basophils # 0.0 K/CMM 0.0 - 0.2 06/07/2013 Normal [facility] HEMATOLOGY Monocytes # 0.5 K/CMM 0.0 - 0.8 06/07/2013 Normal [facility] HEMATOLOGY Eosinophils # 0.0 K/CMM 0.0 - 0.5 06/07/2013 Normal [facility] HEMATOLOGY Monocytes 7.5 % 2.0 - 12.0 06/07/2013 Normal [facility] HEMATOLOGY Lymphocytes 8.8 % 20.0 - 40.0 06/07/2013 LOW [facility] HEMATOLOGY Eosinophils 0.6 % 0.0 - 4.0 06/07/2013 Normal [facility] HEMATOLOGY Basophils 0.6 % 0.0 - 1.0 06/07/2013 Normal [facility] HEMATOLOGY Segs 82.5 % 45.0 - 75.0 06/07/2013 HI [facility] HEMATOLOGY aPTT 26.4 s 22.9 - 35.8 06/07/2013 Normal 9Interpretive Data: Heparin Therapeutic Range: 57 - 92 Seconds [facility] HEMATOLOGY INR 1.03 0.85 - 1.17 06/07/2013 Normal 8Interpretive Data: RECOMMENDED RANGES FOR PROTIME INR: 2.0-3.0 for most medical and surgical thromboembolic states. 2.5-3.5 for artificial heart valves and recurrent embolism. INR SHOULD BE USED ONLY FOR PATIENTS ON STABLE ANTICOAGULANT THERAPY. [facility] PROTIME 13.4 s 12.0 - 14.7 06/07/2013 Normal [facility] MCV 88.8 fL 80.0 - 94.0 06/07/2013 Normal [facility] MCH 29.4 pg 27.0 - 31.0 06/07/2013 Normal [facility] RDW 12.5 % 11.5 - 14.5 06/07/2013 Normal [facility] MCHC 33.2 g/dL 32.0 - 36.0 06/07/2013 Normal [facility] Platelet 186 K/CMM 133 - 450 06/07/2013 Normal [facility] Hct 39.9 % 42.0 - 54.0 06/07/2013 LOW [facility] MPV 10.4 fL 7.4 - 10.4 06/07/2013 Normal [facility] WBC X 10x3 6.7 K/CMM 3.7 - 10.4 06/07/2013 Normal [facility] RBC X 10x6 4.49 M/CMM 4.70 - 6.10 06/07/2013 LOW [facility] HEMATOLOGY Hgb 13.2 g/dL 14.0 - 18.0 06/07/2013 LOW [facility] Spine lumbar wo contrast MRI Spine lumbar wo contrast MRI EXAM: MRI lumbar spine. HISTORY: Gait abnormalities. TECHNIQUE: Sagittal and axial images of the lumbar spine obtained utilizing relative T1 and T2-weighting without contrast. FINDINGS: Five lumbar type vertebral bodies are presumed. Dextroscoliosis is probably due to patient positioning. No compression fracture. Marrow signal within normal limits. Conus medullaris is normally positioned. T12-L1: No significant bulge or central canal stenosis. Mild neuroforaminal stenoses bilaterally. L1-L2: Disc bulge right lateral recess extending into the right neuroforamen with mild right neuroforaminal stenosis. Moderate neuroforaminal stenosis on the left. L2-L3: Degenerative disc desiccation. Generalized disc bulge extending into the neuroforamina bilaterally with the disc abutting the left L2 nerve root in the left neuroforamen. Mild degenerative facet and ligamentum flavum hypertrophy contribute to moderate to marked canal stenosis. L3-L4: Disc extrusion and disc osteophyte complex, marked degenerative facet hypertrophy and moderate ligamentum flavum hypertrophy bilaterally with marked canal stenosis. Severe neuroforaminal stenosis on the left with the extruded disc and posterior element hypertrophy compressing the left L3 nerve root. The disc and hypertrophied facet on the right neuroforamen impinge the right L3 nerve root. L4-L5: Extruded disc, marked degenerative facet and mild ligamentum flavum hypertrophy bilaterally with moderate canal stenosis. Marked neuroforaminal stenoses bilaterally with the disc osteophyte complex on the right and disc protrusion on the left impinging the right and left L4 nerve roots. L5-S1: No significant disc bulge. Marked degenerative facet hypertrophy bilaterally with marked neuroforaminal stenosis on the right with the facet impinging the right L5 nerve root. Moderate foraminal stenosis on the left. IMPRESSION: Multilevel degenerative changes of the lumbar spine most pronounced at L3-L4, L4-L5 and L5-S1 with extruded discs and posterior element hypertrophy with canal and neuroforaminal stenoses with impingement or compression of the L3, L4 and L5 nerve roots as described. SL:13 06/07/2013 - - Read by: Karl Olmedo Dictated Date/time: 06/07/13 13:45 Electronically Signed by: Karl Olmedo MD 06/07/13 14:04 FINAL REPORT [facility] Chest 1view Chest 1view Portable one view AP chest, Jun 07, 2013 12:00:00 PM CLINICAL HISTORY: Chest pain ; See Clinic Indication TECHNIQUE: Routine AP view of the chest was obtained. COMPARISON: None FINDINGS: Lungs are clear. No pleural effusion or radiographically detectable pneumothorax is present. Cardiomediastinal silhouette is normal. Bones demonstrate degenerative changes in the spine and shoulders. IMPRESSION: No acute abnormality of the chest. SL: 14 06/07/2013 - - Read by: Rickey Gallo Dictated Date/time: 06/07/13 12:11 Electronically Signed by: Rickey Gallo MD 06/07/13 12:11 FINAL REPORT [facility] CHEMISTRY Glucose Lvl 147 mg/dL 70 - 99 06/06/2013 [place] 2Interpretive Data: Adult reference range values reflect the clinical guidelines of the [place] [employer]. [facility] CHEMISTRY CO2 26 meq/L 24 - 32 06/06/2013 Normal [facility] CHEMISTRY BUN 16 mg/dL 7 - 22 06/06/2013 Normal [facility] CHEMISTRY eGFR 60 mL/min/1.73m2 06/06/2013 1Result Comment: The eGFR is calculated using [...] from the National Kidney Disease Education Program (NKDEP) which additionally recommends that when the eGFR is used in patients with extremes of body mass index for purposes of drug dosing, the eGFR should be multiplied by the estimated BMI. [facility] CHEMISTRY Chloride Lvl 107 meq/L 95 - 109 06/06/2013 Normal [facility] CHEMISTRY Potassium Lvl 4.1 meq/L 3.5 - 5.1 06/06/2013 Normal [facility] CHEMISTRY Sodium Lvl 143 meq/L 135 - 145 06/06/2013 Normal [facility] CHEMISTRY Creatinine Lvl 1.2 mg/dL 0.5 - 1.4 06/06/2013 Normal [facility] CHEMISTRY Calcium Lvl 8.6 mg/dL 8.5 - 10.5 06/06/2013 Normal [facility] CHEMISTRY AGAP 14.1 meq/L 10.0 - 20.0 06/06/2013 Normal [facility] HEMATOLOGY Segs 63.9 % 45.0 - 75.0 06/06/2013 Normal [facility] HEMATOLOGY Lymphocytes 23.2 % 20.0 - 40.0 06/06/2013 Normal [facility] HEMATOLOGY Monocytes 9.2 % 2.0 - 12.0 06/06/2013 Normal [facility] HEMATOLOGY Segs-Bands # 5.1 K/CMM 1.5 - 8.1 06/06/2013 Normal [facility] HEMATOLOGY Basophils 1.8 % 0.0 - 1.0 06/06/2013 HI [facility] HEMATOLOGY Eosinophils 1.9 % 0.0 - 4.0 06/06/2013 Normal [facility] HEMATOLOGY Lymphocytes # 1.9 K/CMM 1.0 - 5.5 06/06/2013 Normal [facility] HEMATOLOGY Basophils # 0.1 K/CMM 0.0 - 0.2 06/06/2013 Normal [facility] HEMATOLOGY Monocytes # 0.7 K/CMM 0.0 - 0.8 06/06/2013 Normal [facility] Eosinophils # 0.2 K/CMM 0.0 - 0.5 06/06/2013 Normal [facility] MCH 29.8 pg 27.0 - 31.0 06/06/2013 [facility] RDW 12.7 % 11.5 - 14.5 06/06/2013 Normal [facility] MCHC 33.0 g/dL 32.0 - 36.0 06/06/2013 Normal [facility] MCV 90.1 fL 80.0 - 94.0 06/06/2013 Normal [facility] Hgb 12.9 g/dL 14.0 - 18.0 06/06/2013 LOW [facility] Hct 39.0 % 42.0 - 54.0 06/06/2013 [facility] WBC X 10x3 8.0 K/CMM 3.7 - 10.4 06/06/2013 [facility] RBC X 10x6 4.33 M/CMM 4.70 - 6.10 06/06/2013 [facility] Platelet 195 K/CMM 133 - 450 06/06/2013 [facility] MPV 10.6 fL 7.4 - 10.4 06/06/2013 [facility] Chest/Abdomen/Pelvis w contrast CT Chest/Abdomen/Pelvis w contrast CT I. CT SCAN OF THE CHEST WITH CONTRAST II. CT SCAN OF THE ABDOMEN WITH CONTRAST III. CT SCAN OF THE PELVIS WITH CONTRAST HISTORY: Chest and abdominal pain. Concern for aortic aneurysm or dissection. I. CT SCAN OF THE CHEST WITH CONTRAST. Technique: Helical CT images were obtained from the thoracic inlet to the upper abdomen following the administration of nonionic iodinated intravenous contrast for maximal arterial opacification (CT angiographic technique). II. CT SCAN OF THE ABDOMEN WITH CONTRAST Technique: Helical CT images were obtained from the domes the diaphragms to the iliac crests following the administration of nonionic iodinated intravenous contrast for maximal arterial opacification (CT angiographic technique). III. CT SCAN OF THE PELVIS WITH CONTRAST. Technique: Helical CT images were obtained from the iliac crests to the pubic symphysis following the administration of nonionic iodinated intravenous contrast for maximal arterial opacification (CT angiographic technique). Sagittal and coronal reconstructions were provided. FINDINGS: 1. No evidence of aortic aneurysm or dissection. 2. Mild atherosclerotic changes involving the aorta. 3. Extensive left coronary artery calcifications. 4. Moderate calcifications are noted in the region of the mitral annulus. 5. The heart is normal in size. There is no pericardial effusion. 6. No evidence of an active or acute process within the chest. There are no infiltrates or pleural effusions. 7. No suspicious mass or adenopathy is seen within the chest. There is a tiny calcified granuloma superior segment of the right lower lobe. 8. There is no free intraperitoneal gas, abscess, focal inflammation, or other evidence of an acute intra-abdominal process. 9. No mass or adenopathy is seen within the abdomen or pelvis. 10. Postoperative changes in the right midabdomen. It appears the patient had a prior right colon resection. Please correlate with surgical history. 11. Moderate scattered diverticulosis predominately involving the descending colon. There is no evidence of diverticulitis. The gastrointestinal structures are otherwise unremarkable. There is no evidence of obstruction or ileus. Evaluation the gastrointestinal structures is limited due to lack of oral contrast. 12. The liver, spleen, pancreas, and adrenal glands are within normal limits. 13. The kidneys show good, symmetrical excretion without hydronephrosis. The kidneys are normal in size. There is a 15 mm right lower pole renal cyst. There is minimal renal cortical scarring. The kidneys are otherwise unremarkable. 14. Enlargement the prostate gland. The prostate gland measures approximately 5.5 x 4.8 cm in maximal diameter. 15. Moderate bilateral inguinal hernias with herniation of fat. There is no herniation of bowel. 16. Calcifications of the vas deferens which could indicate diabetes per please correlate with clinical information. 17. There is extensive degenerative facet disease at multiple levels in the mid and lower lumbosacral region. There are mild scattered degenerative changes elsewhere throughout the visualized spine. Coding: Chest/Abdomen/Pelvis w contrast CT SL: 12 Andrew Crain M.D. 06/05/2013 - - Read by: Andrew Crain Dictated Date/time: 06/05/13 23:46 Electronically Signed by: Andrew Crain MD 06/05/13 23:56 FINAL REPORT [facility] Hip bilateral w pelvis and both lat hips Hip bilateral w pelvis and both lat hips BILATERAL HIPS with PELVIS HISTORY: Bilateral hip pain. I. LEFT HIP (2 Views) with PELVIS COMMENT: The left hip was evaluated in neutral and external rotation. A frontal view of the pelvis was also obtained. FINDINGS: The joint spaces are well maintained. There is no evidence of fracture, degenerative change, or other osteoarticular abnormality. The pelvic ring is intact. There are moderate atherosclerotic calcifications. CONCLUSION: 1. Negative left hip and pelvis. II. RIGHT HIP (2 Views) with PELVIS COMMENT: The right hip was evaluated in neutral and external rotation. A frontal view of the pelvis was also obtained. FINDINGS: The joint spaces are well maintained. There is no evidence of fracture, degenerative change, or other osteoarticular abnormality. The pelvic ring is intact. There are moderate atherosclerotic calcifications. CONCLUSION: 1. Negative right hip and pelvis. Coding: CPT code: 61286 x 2 ,40345 SL: 12 Andrew Crain M.D. 06/05/2013 - - Read by: Andrew Crain Dictated Date/time: 06/05/13 22:34 Electronically Signed by: Andrew Crain MD 06/05/13 22:35 FINAL REPORT [facility] CHEMISTRY Chloride Lvl 106 meq/L 95 - 109 02/04/2012 Normal [facility] CHEMISTRY Potassium Lvl 4.7 meq/L 3.5 - 5.1 02/04/2012 Normal [facility] CHEMISTRY Sodium Lvl 141 meq/L 135 - 145 02/04/2012 Normal [facility] CHEMISTRY AGAP 16.7 meq/L 10.0 - 20.0 02/04/2012 Normal [facility] CHEMISTRY Creatinine Lvl 1.3 mg/dL 0.5 - 1.4 02/04/2012 Normal [facility] CHEMISTRY CO2 23 meq/L 24 - 32 02/04/2012 LOW [facility] CHEMISTRY Calcium Lvl 8.7 mg/dL 8.5 - 10.5 02/04/2012 Normal [facility] CHEMISTRY Glucose Lvl 158 mg/dL 70 - 99 02/04/2012 [place] 1Interpretive Data: Adult reference range values reflect the clinical guidelinesof the [place] [employer]. [facility] CHEMISTRY BUN 15 mg/dL 7 - 22 02/04/2012 Normal [facility] Vital Signs Vital Sign Value Date Comments Source Respitory Rate 14 01/15/2016 [facility] Systolic (mm Hg) 126 01/15/2016 [facility] Diastolic (mm Hg) 62 01/15/2016 [facility] Systolic (mm Hg) 121 01/15/2016 [facility] Diastolic (mm Hg) 61 01/15/2016 [facility] Respitory Rate 13 01/15/2016 [facility] Respitory Rate 17 01/15/2016 [facility] Systolic (mm Hg) 133 01/15/2016 [facility] Diastolic (mm Hg) 69 01/15/2016 [facility] Temperature Oral (F) 97.5 F 01/08/2016 [facility] Heart Rate 60 01/08/2016 [facility] Weight 85 01/08/2016 [facility] BMI Calculated 33.19 01/08/2016 [facility] Height 160.02 cm 01/08/2016 [facility] Diastolic (mm Hg) 74 06/09/2013 [facility] Systolic (mm Hg) 146 06/09/2013 [facility] Heart Rate 77 06/09/2013 [facility] Respitory Rate 20 06/09/2013 [facility] Temperature Oral (F) 97.8 F 06/09/2013 [facility] Systolic (mm Hg) 161 06/09/2013 [facility] Diastolic (mm Hg) 70 06/09/2013 [facility] Systolic (mm Hg) 125 06/09/2013 [facility] Respitory Rate 20 06/09/2013 [facility] Diastolic (mm Hg) 74 06/09/2013 [facility] Heart Rate 71 06/09/2013 [facility] Temperature Oral (F) 97.8 F 06/09/2013 [facility] Heart Rate 73 06/09/2013 [facility] Respitory Rate 18 06/09/2013 [facility] Temperature Oral (F) 98.7 F 06/09/2013 [facility] Weight 80.9 06/07/2013 [facility] Height 157.4 cm 06/07/2013 [facility] Height 157.48 cm 06/07/2013 [facility] Weight 80.909 06/07/2013 [facility] Heart Rate 81 06/06/2013 [facility] Temperature Oral (F) 98.3 F 06/06/2013 [facility] Respitory Rate 18 06/06/2013 [facility] Diastolic (mm Hg) 75 06/06/2013 [facility] Systolic (mm Hg) 141 06/06/2013 [facility] Temperature Oral (F) 98.0 F 06/05/2013 [facility] Respitory Rate 18 06/05/2013 [facility] Height 162.56 cm 06/05/2013 [facility] Weight 81.818 06/05/2013 [facility] Heart Rate 70 06/05/2013 [facility] Systolic (mm Hg) 159 06/05/2013 [facility] Diastolic (mm Hg) 78 06/05/2013 [facility] Heart Rate 72 02/09/2012 [facility] Respitory Rate 18 02/09/2012 [facility] Diastolic (mm Hg) 73 02/09/2012 [facility] Systolic (mm Hg) 129 02/09/2012 [facility] Respitory Rate 16 02/09/2012 [facility] Systolic (mm Hg) 122 02/09/2012 [facility] Diastolic (mm Hg) 67 02/09/2012 [facility] Heart Rate 65 02/09/2012 [facility] Diastolic (mm Hg) 62 02/09/2012 [facility] Respitory Rate 16 02/09/2012 [facility] Heart Rate 70 02/09/2012 [facility] Systolic (mm Hg) 117 02/09/2012 [facility] Height 157.48 cm 02/04/2012 [facility] Weight 80.909 02/04/2012 [facility] Encounters Location Location Details Encounter Type Encounter Number Reason For Visit Attending Provider ADM Date DC Date Status Source [facility] GABBY [id number] THEODOROS VOLOYIANNIS 02/09/2012 02/09/2012 Active [facility] Emergency [id number] SHANNON JERAD 06/05/2013 06/06/2013 Active [facility] OU [id number] VETO ERICH 06/07/2013 06/09/2013 Active [facility] Outpatient [id number] THEODOROS VOLOYIANNIS 12/05/2015 Active [facility] Outpatient [id number] THEODOROS VOLOYIANNIS 01/15/[address] [facility] OBS Day Surgery [id number] Theodoros Voloyiannis 01/15/2016 01/15/2016 [facility] Outpatient [id number] Prashanth Aldrich 01/29/2016 01/30/2016 [facility] Outpatient [id number] THEODOROS VOLOYIANNIS 02/04/2016 Active [facility] Outpatient [id number] THEODOROS VOLOYIANNIS 02/04/[address] [facility] Outpatient [id number] Obonoruma Ekhaese 02/03/2017 02/04/2017 [facility] Procedures Procedure Code Date Perfomer Comments Source Operation<sup>1</sup> [id number] 01/15/2016 Ligation of internal hemorrhoids with hemorrhoidopexy and excision of anal skin tag x 2 [facility] Emergency department visit for the evaluation and management of a patient, which requires these 3 villavicencio components within the constraints imposed by the urgency of the patient's clinical condition and/or mental status: A comprehensive history; A comprehensi [id number] 06/07/2013 [facility] Emergency department visit for the evaluation and management of a patient, which requires these 3 villavicencio components within the constraints imposed by the urgency of the patient's clinical condition and/or mental status: A comprehensive history; A comprehensi [id number] 06/06/2013 [facility] Therapeutic, prophylactic, or diagnostic injection (specify substance or drug); each additional sequential intravenous push of a new substance/drug (List separately in addition to code for primary procedure) [id number] 06/05/2013 [facility] Therapeutic, prophylactic, or diagnostic injection (specify substance or drug); each additional sequential intravenous push of the same substance/drug provided in a facility (List separately in addition to code for primary procedure) [id number] 06/05/2013 [facility] Therapeutic, prophylactic, or diagnostic injection (specify substance or drug); intravenous push, single or initial substance/drug [id number] 06/05/2013 [facility] Balloon angioplasty of coronary artery [id number] [facility] Right colectomy [id number] [facility] Tonsillectomy and adenoidectomy [id number] [facility]
--- OUTSIDE RECORDS SUMMARY | 2018-08-02 05:59 | XMS REPORT | CCD ---
Author Author Auto Generated Organization [facility] Address Unknown Phone Unavailable Care Team Providers Care Rail Assembler Name Role Phone Jermaine Jung CP Allergies, Adverse Reactions, Alerts Substance Reaction Status NKDA Active Problem List Condition Effective Dates Status BPH - Benign prostatic hypertrophy Active DM - Diabetes mellitus Resolved HTN - Hypertension Resolved Medications Medication Instructions Start Date End Date Status timolol ophthalmic 1 drp, Route: BOTH EYES, QAM, Drug 06/08/2013 06/07/2013 Deleted 0.5% gel forming form: GFS, Start date: 06/08/13 solution 9:00:00, Duration: 30 day, Stop date: 07/07/13 9:00:00 Travatan Z 0.004% 1 drp, Route: BOTH EYES, Drug Form: 06/08/2013 06/09/2013 Discontinued ophthalmic solution SOLN, Dosing Weight 80.9, kg, QPM, Start date: 06/08/13 17:00:00, Duration: 30 day, Stop date: 07/07/13 17:00:00(Same As: Travatan) tamsulosin 0.4 mg, 1 cap, Route: PO, Drug 06/08/2013 06/09/2013 Discontinued form: CAP, QPM, Dosing Weight 80.9, kg, Start date: 06/08/13 17:00:00, Duration: 30 day, Stop date: 07/07/13 17:00:00(Same As: Flomax) "Do Not Crush" Citrucel 500 mg, Route: PO, Daily, Dosing 06/08/2013 06/07/2013 Deleted Weight 80.9, kg, Start date: 06/08/13 9:00:00, Duration: 30 day, Stop date: 07/07/13 9:00:00 lisinopril 2.5 mg, 0.5 tab, Route: PO, Drug 06/08/2013 06/09/2013 Discontinued form: TAB, Daily, Dosing Weight 80.9, kg, Start date: 06/08/13 9:00:00, Duration: 30 day, Stop date: 07/07/13 9:00:00(Same as: Prinivil, Zestril) glipiZIDE 10 mg oral 10 mg, 1 tab, Route: PO, Drug form: 06/08/2013 06/09/2013 Discontinued tablet, extended ERTAB, BID, Dosing Weight 80.9, kg, release Start date: 06/08/13 9:00:00, Duration: 30 day, Stop date: 07/07/13 17:00:00(Same as: Glucotrol XL)"Do Not Crush" 30 min before meals. ferrous sulfate 325 mg, 1 tab, Route: PO, Drug 06/08/2013 06/09/2013 Discontinued form: ECTAB, Daily, Dosing Weight 80.9, kg, Start date: 06/08/13 9:00:00, Duration: 30 day, Stop date: 07/07/13 9:00:00Give with food. "Do Not Crush" Byetta 5 microgram, Route: SUB-Q, Drug 06/08/2013 06/07/2013 Deleted form: SOLN, BID, Dosing Weight 80.9, kg, Start date: 06/08/13 9:00:00, Duration: 30 day, Stop date: 07/07/13 17:00:00 Plavix 75 mg, 1 tab, Route: PO, Drug form: 06/08/2013 06/09/2013 Discontinued TAB, Daily, Dosing Weight 80.9, kg, Start date: 06/08/13 9:00:00, Duration: 30 day, Stop date: 07/07/13 9:00:00(Same As: Plavix) atorvastatin 20 mg, 2 tab, Route: PO, Drug form: 06/08/2013 06/09/2013 Discontinued TAB, QPM, Dosing Weight 80.9, kg, Start date: 06/08/13 17:00:00, Duration: 30 day, Stop date: 07/07/13 17:00:00(Same As: Lipitor) pneumococcal 0.5 ml, Route: IM, Drug Form: INJ, 06/08/2013 06/08/2013 Completed 23-valent vaccine Daily, Start date: 06/08/13 9:00:00, Duration: 1 doses or times, Stop date: 06/08/13 9:00:00(Same as: Pneumovax 23) Refrigerate influenza virus 0.5 ml, Route: IM, Drug Form: SUSP, 06/08/2013 06/08/2013 Completed vaccine, inactivated Daily, Start date: 06/08/13 9:00:00, Duration: 1 doses or times, Stop date: 06/08/13 9:00:00(Same as: Fluzone) Timolol 0.5% Timolol 0.5% opthalmic gel forming 06/08/2013 06/09/2013 Discontinued opthalmic gel solution, 1 drp, Drug form: MISC, forming solution Route: BOTH EYES, QAM, 06/08/13 9:00:00, Duration: 30 day, Stop date: 07/07/13 9:00:00 Dextrose 50% in 50 mL, Route: IVP, Start date: 06/07/2013 06/07/2013 Discontinued Water IV 06/07/13 18:39:00, Duration: 30 day, Stop date: 07/07/13 17:38:00, PRN Blood Glucose Results glucagon 1 mg, Route: IM, Drug form: 06/07/2013 06/07/2013 Discontinued PDR/INJ, PRN, PRN Blood Glucose Results, Start date: 06/07/13 18:39:00, Duration: 30 day, Stop date: 07/07/13 17:38:00 NovoLog FlexPen 18 unit, 0.18 mL, Route: SUB-Q, 06/07/2013 06/07/2013 Discontinued Drug form: SOLN, Sliding Scale, PRN Blood Glucose Results, Start date: 06/07/13 18:39:00, Duration: 30 day, Stop date: 07/07/13 17:38:00Roll in palms of hands gently; Do not shake vigorously. (Same as: NovoLog)"single patient use only" Stable for 28 days at room temperature.Expires in days from Date NovoLog FlexPen 12 unit, 0.12 mL, Route: SUB-Q, 06/07/2013 06/07/2013 Discontinued Drug form: SOLN, Sliding Scale, PRN Blood Glucose Results, Start date: 06/07/13 18:39:00, Duration: 30 day, Stop date: 07/07/13 17:38:00Roll in palms of hands gently; Do not shake vigorously. (Same as: NovoLog)"single patient use only" Stable for 28 days at room temperature.Expires in days from Date NovoLog FlexPen 15 unit, 0.15 mL, Route: SUB-Q, 06/07/2013 06/07/2013 Discontinued Drug form: SOLN, Sliding Scale, PRN Blood Glucose Results, Start date: 06/07/13 18:39:00, Duration: 30 day, Stop date: 07/07/13 17:38:00Roll in palms of hands gently; Do not shake vigorously. (Same as: NovoLog)"single patient use only" Stable for 28 days at room temperature.Expires in days from Date NovoLog FlexPen 6 unit, 0.06 mL, Route: SUB-Q, Drug 06/07/2013 06/07/2013 Discontinued form: SOLN, Sliding Scale, PRN Blood Glucose Results, Start date: 06/07/13 18:39:00, Duration: 30 day, Stop date: 07/07/13 17:38:00Roll in palms of hands gently; Do not shake vigorously. (Same as: NovoLog)"single patient use only" Stable for 28 days at room temperature.Expires in days from Date NovoLog FlexPen 9 unit, 0.09 mL, Route: SUB-Q, Drug 06/07/2013 06/07/2013 Discontinued form: SOLN, Sliding Scale, PRN Blood Glucose Results, Start date: 06/07/13 18:39:00, Duration: 30 day, Stop date: 07/07/13 17:38:00Roll in palms of hands gently; Do not shake vigorously. (Same as: NovoLog)"single patient use only" Stable for 28 days at room temperature.Expires in days from Date Citrucel 500mg po Citrucel 500mg po daily*Patients 06/08/2013 06/09/2013 Discontinued daily*Patients own own med*, 500 mg, Drug form: MISC, med* Route: PO, Daily, 06/08/13 9:00:00, Duration: 30 day, Stop date: 07/07/13 9:00:00 NovoLog FlexPen 3 unit, 0.03 mL, Route: SUB-Q, Drug 06/07/2013 06/07/2013 Discontinued form: SOLN, Sliding Scale, PRN Blood Glucose Results, Start date: 06/07/13 18:39:00, Duration: 30 day, Stop date: 07/07/13 17:38:00Roll in palms of hands gently; Do not shake vigorously. (Same as: NovoLog)"single patient use only" Stable for 28 days at room temperature.Expires in days from Date Saline Flush 0.9% 5 ml, Route: IVP, Drug Form: INJ, 06/07/2013 06/09/2013 Discontinued Dosing Weight 80.909, kg, PRN, PRN Line Flush, Start date: 06/07/13 18:10:00, Duration: 30 day, Stop date: 07/07/13 17:09:00(Same as: BD Posiflush) Medrol Dosepak 4 mg As directed on package 06/09/2013 06/15/2013 Ordered Tablet instructions, PO, Daily, Take with or without food, 1 Pack, Substitution Allowed Take with or without food insulin aspart 15 unit, 0.15 mL, Route: SUB-Q, 06/07/2013 06/09/2013 Discontinued Drug form: SOLN, TID-Before Meals, Dosing Weight 80.9, kg, PRN Blood Glucose Results, Start date: 06/07/13 18:52:00, Duration: 30 day, Stop date: 07/07/13 18:51:00Roll in palms of hands gently; Do not shake vigorously. (Same as: NovoLog)"single patient use only" Stable for 28 days at room temperature.Expires in days from Date insulin aspart 12 unit, 0.12 mL, Route: SUB-Q, 06/07/2013 06/09/2013 Discontinued Drug form: SOLN, TID-Before Meals, Dosing Weight 80.9, kg, PRN Blood Glucose Results, Start date: 06/07/13 18:52:00, Duration: 30 day, Stop date: 07/07/13 18:51:00Roll in palms of hands gently; Do not shake vigorously. (Same as: NovoLog)"single patient use only" Stable for 28 days at room temperature.Expires in days from Date insulin aspart 9 unit, 0.09 mL, Route: SUB-Q, Drug 06/07/2013 06/09/2013 Discontinued form: SOLN, TID-Before Meals, Dosing Weight 80.9, kg, PRN Blood Glucose Results, Start date: 06/07/13 18:52:00, Duration: 30 day, Stop date: 07/07/13 18:51:00Roll in palms of hands gently; Do not shake vigorously. (Same as: NovoLog)"single patient use only" Stable for 28 days at room temperature.Expires in days from Date insulin aspart 6 unit, 0.06 mL, Route: SUB-Q, Drug 06/07/2013 06/09/2013 Discontinued form: SOLN, TID-Before Meals, Dosing Weight 80.9, kg, PRN Blood Glucose Results, Start date: 06/07/13 18:52:00, Duration: 30 day, Stop date: 07/07/13 18:51:00Roll in palms of hands gently; Do not shake vigorously. (Same as: NovoLog)"single patient use only" Stable for 28 days at room temperature.Expires in days from Date insulin aspart 3 unit, 0.03 mL, Route: SUB-Q, Drug 06/07/2013 06/09/2013 Discontinued form: SOLN, TID-Before Meals, Dosing Weight 80.9, kg, PRN Blood Glucose Results, Start date: 06/07/13 18:52:00, Duration: 30 day, Stop date: 07/07/13 18:51:00Roll in palms of hands gently; Do not shake vigorously. (Same as: NovoLog)"single patient use only" Stable for 28 days at room temperature.Expires in days from Date morphine Sulfate 2 mg, 1 mL, Route: IV, Drug form: 06/07/2013 06/09/2013 Discontinued INJ, Q6H, Dosing Weight 80.909, kg, PRN Pain Score 4-6, Start date: 06/07/13 18:19:00, Duration: 30 day, Stop date: 07/07/13 18:18:00(Same as:MORPhine Sulfate) Neurontin 100 mg 100 mg, 1 cap, PO, TID, 90 cap, 06/09/2013 Ordered oral capsule Substitution Allowed, CAP Travatan Z 0.004% 1 drp, BOTH EYES, QPM, 3 ml, 06/07/2013 Ordered ophthalmic solution Substitution Allowed, Maintenance, SOLN Sodium Chloride 0.9% 1,000 mL, Rate: 75 ml/hr, Infuse 06/07/2013 06/07/2013 Completed IV 1,000 mL over: 13.3 hr, Route: IV, Dosing Weight 80.909 kg, Total Volume: 1,000, Priority: STAT, Start date: 06/07/13 12:54:00, Duration: 1 doses or times, Stop date: 06/08/13 2:11:00 Kayexalate 30 gm, 120 mL, Route: PO, Drug 06/07/2013 06/07/2013 Completed form: SUSP, ONCE, Dosing Weight 80.909, kg, Priority: STAT, Start date: 06/07/13 12:54:00, Stop date: 06/07/13 12:54:00(sodium polystyrene sulfonate 15 gm/60 ml ALVINA) Shake well before use. (Same as: Kayexalate, SPS) pneumococcal 0.5 ml, Route: IM, Drug Form: INJ, 06/08/2013 06/08/2013 Completed 23-valent vaccine Start date: 06/08/13 9:00:00, Stop date: 06/08/13 9:00:00 influenza virus 0.5 ml, Route: IM, Drug Form: SUSP, 06/08/2013 06/08/2013 Completed vaccine, inactivated Start date: 06/08/13 9:00:00, Stop date: 06/08/13 9:00:00 timolol ophthalmic 1 drp, BOTH EYES, QAM, Substitute 06/07/2013 Ordered 0.5% gel forming Allowed solution morphine Sulfate 3 mg, 1.5 mL, Route: IVP, Drug 06/08/2013 06/09/2013 Discontinued form: INJ, Q4H, Dosing Weight 80.9, kg, PRN Pain Score 7-10, Start date: 06/08/13 0:05:00, Duration: 30 day, Stop date: 07/08/13 0:04:00(Same as:MORPhine Sulfate) ferrous sulfate 325 325 mg, 1 tab, PO, Daily, 30 tab, 06/07/2013 Ordered mg oral enteric Substitution Allowed, ECTAB coated tablet Percocet 10/325 oral 1 tab, PO, Q6H, PRN, 60 tab, as 06/09/2013 Ordered tablet needed for pain, Substitution Allowed, Maintenance Neurontin 100 mg 100 mg, 1 cap, Route: PO, Drug 06/08/2013 06/09/2013 Discontinued oral capsule form: CAP, TID, Dosing Weight 80.9, kg, Start date: 06/08/13 13:00:00, Duration: 30 day, Stop date: 07/08/13 9:00:00(Same as: Neurontin) Bydemetria 5 microgram Byetta 5 microgram Sub-Q 06/08/2013 06/09/2013 Discontinued Sub-Q BID*Patient's BID*Patient's own med, 5 microgram, own med Drug form: MISC, Route: SUB-Q, BID, 06/08/13 9:00:00, Duration: 30 day, Stop date: 07/07/13 17:00:00 [place] 5/325 oral 2 tab, Route: PO, Drug Form: TAB, 06/08/2013 06/09/2013 Discontinued tablet Dosing Weight 80.9, kg, Q6H, PRN Pain, Start date: 06/08/13 10:02:00, Duration: 30 day, Stop date: 07/08/13 10:01:00(Same as: [place] 325/5) Do not exceed 4gm/day of acetaminophen. [place] 5/325 oral 1 tab, Route: PO, Drug Form: TAB, 06/08/2013 06/09/2013 Discontinued tablet Dosing Weight 80.9, kg, Q6H, PRN Pain, Start date: 06/08/13 10:02:00, Duration: 30 day, Stop date: 07/08/13 10:01:00(Same as: [place] 325/5) Do not exceed 4gm/day of acetaminophen. Medrol Dosepak 4 mg 4 mg, 1 tab, Route: PO, Drug form: 06/08/2013 06/09/2013 Discontinued Tablet TAB, QID-After Meals, Dosing Weight 80.9, kg, Start date: 06/08/13 13:00:00, Duration: 6 day, Stop date: 06/14/13 8:30:00(Same as :Medrol) Take with food insulin aspart 3 unit, 0.03 mL, Route: SUB-Q, Drug 06/07/2013 06/09/2013 Discontinued form: SOLN, Bedtime, Dosing Weight 80.9, kg, PRN Blood Glucose Results, Start date: 06/07/13 18:52:00, Duration: 30 day, Stop date: 07/07/13 18:51:00Roll in palms of hands gently; Do not shake vigorously. (Same as: NovoLog)"single patient use only" Stable for 28 days at room temperature.Expires in days from Date insulin aspart 4 unit, 0.04 mL, Route: SUB-Q, Drug 06/07/2013 06/09/2013 Discontinued form: SOLN, Bedtime, Dosing Weight 80.9, kg, PRN Blood Glucose Results, Start date: 06/07/13 18:52:00, Duration: 30 day, Stop date: 07/07/13 18:51:00Roll in palms of hands gently; Do not shake vigorously. (Same as: NovoLog)"single patient use only" Stable for 28 days at room temperature.Expires in days from Date insulin aspart 1 unit, 0.01 mL, Route: SUB-Q, Drug 06/07/2013 06/09/2013 Discontinued form: SOLN, Bedtime, Dosing Weight 80.9, kg, PRN Blood Glucose Results, Start date: 06/07/13 18:52:00, Duration: 30 day, Stop date: 07/07/13 18:51:00Roll in palms of hands gently; Do not shake vigorously. (Same as: NovoLog)"single patient use only" Stable for 28 days at room temperature.Expires in days from Date insulin aspart 2 unit, 0.02 mL, Route: SUB-Q, Drug 06/07/2013 06/09/2013 Discontinued form: SOLN, Bedtime, Dosing Weight 80.9, kg, PRN Blood Glucose Results, Start date: 06/07/13 18:52:00, Duration: 30 day, Stop date: 07/07/13 18:51:00Roll in palms of hands gently; Do not shake vigorously. (Same as: NovoLog)"single patient use only" Stable for 28 days at room temperature.Expires in days from Date glucagon 1 mg, Route: IM, Drug form: 06/07/2013 06/09/2013 Discontinued PDR/INJ, PRN, Dosing Weight 80.9, kg, PRN Blood Glucose Results, Start date: 06/07/13 18:52:00, Duration: 30 day, Stop date: 07/07/13 17:51:00 Dextrose 50% Syringe 12.5 gm, 25 mL, Route: IVP, Drug 06/07/2013 06/09/2013 Discontinued Form: INJ, Dosing Weight 80.9, kg, PRN, PRN Blood Glucose Results, Start date: 06/07/13 18:52:00, Duration: 30 day, Stop date: 07/07/13 17:51:00 Dextrose 50% Syringe 25 gm, 50 mL, Route: IVP, Drug 06/07/2013 06/09/2013 Discontinued Form: INJ, Dosing Weight 80.9, kg, PRN, PRN Blood Glucose Results, Start date: 06/07/13 18:52:00, Duration: 30 day, Stop date: 07/07/13 17:51:00 Byetta 10 mcg/0.04 10 microgram, SUB-Q, BID, 2 ml, 06/07/2013 Ordered mL subcutaneous Substitution Allowed, SOLN solution enoxaparin 40 mg, 0.4 mL, Route: SUB-Q, Drug 06/07/2013 06/09/2013 Discontinued form: INJ, [id number], Dosing Weight 80.9, kg, Start date: 06/07/13 19:00:00, Duration: 30 day, Stop date: 07/06/13 19:00:00(Same as: Lovenox) Lactated Ringers 1,000 mL, Rate: 25 ml/hr, Infuse 06/09/2013 06/09/2013 Discontinued Injection IV 1000 mL over: 40 hr, Route: IV, Dosing Weight 80.9 kg, Total Volume: 1,000, Start date: 06/09/13 13:15:00, Duration: 30 day, Stop date: 07/09/13 13:14:00 Immunizations Vaccine Date Status influenza virus vaccine, inactivated 06/08/2013 Auth (Verified) pneumococcal 23-valent vaccine 06/08/2013 Auth (Verified) Vital Signs Most recent to oldest [Reference Range]: 1 2 3 Height 157.4 cm (06/07/2013 18:39:00) 157.48 cm (06/07/2013 08:17:00) Temperature Oral [96.4-99.1 DegF] 97.8 DegF (06/09/2013 16:49:00) 97.8 DegF (06/09/2013 08:16:00) 98.7 DegF (06/09/2013 00:02:00) Systolic Blood Pressure [90-140 mmHg] 146 mmHg *HI* (06/09/2013 16:49:00) 161 mmHg *HI* (06/09/2013 12:29:00) 125 mmHg (06/09/2013 08:16:00) Diastolic Blood Pressure [60-90 mmHg] 74 mmHg (06/09/2013 16:49:00) 70 mmHg (06/09/2013 12:29:00) 74 mmHg (06/09/2013 08:16:00) Respiratory Rate [14-20 BRMIN] 20 BRMIN (06/09/2013 16:49:00) 20 BRMIN (06/09/2013 08:16:00) 18 BRMIN (06/09/2013 04:05:00) Peripheral Pulse Rate [60-100 bpm] 77 bpm (06/09/2013 16:49:00) 71 bpm (06/09/2013 08:16:00) 73 bpm (06/09/2013 04:05:00) Weight 80.9 kg (06/07/2013 18:39:00) 80.909 kg (06/07/2013 08:17:00) Results BEDSIDE GLUCOSE TESTING Most recent to oldest [Reference Range]: 1 2 3 Glucose POC [70-99 mg/dL] 305 mg/dL 1 *HI* (06/09/2013 16:30:00) 150 mg/dL 2 *HI* (06/09/2013 11:18:00) 225 mg/dL 3 *HI* (06/09/2013 05:53:00) Gluc POC Comment 1 Notify RN/MD *NA* (06/09/2013 11:18:00) Notify RN/MD *NA* (06/09/2013 05:53:00) Notify RN/MD *NA* (06/08/2013 20:39:00) 1Interpretive Data: Upper Reportable Limit: 200 mg/dL. 2Interpretive Data: Upper Reportable Limit: 200 mg/dL. 3Interpretive Data: Upper Reportable Limit: 200 mg/dL. URINALYSIS Most recent to oldest [Reference Range]: 1 2 3 UA Turbidity [Clear] Clear (06/07/2013 09:05:46) UA Color [Yellow] Yellow *NA* (06/07/2013 09:05:46) UA pH [5.0-8.0] 5.0 (06/07/2013 09:05:46) UA Spec Grav [<=1.030] 1.020 (06/07/2013 09:05:46) UA Glucose [Negative mg/dL] 50 mg/dL *ABN* (06/07/2013 09:05:46) UA Blood [Negative] Negative (06/07/2013 09:05:46) UA Ketones [Negative mg/dL] Trace mg/dL *ABN* (06/07/2013 09:05:46) UA Protein [Negative mg/dL] Negative mg/dL (06/07/2013 09:05:46) UA Urobilinogen [0.1-1.0 mg/dL] <=1.0 mg/dL *NA* (06/07/2013 09:05:46) UA Bili [Negative] Negative *NA* (06/07/2013 09:05:46) UA Leuk Est [Negative] Negative (06/07/2013 09:05:46) UA Nitrite [Negative] Negative (06/07/2013 09:05:46) UA WBC [0-5 /HPF] 1 /HPF (06/07/2013 09:05:46) UA RBC [0-2 /HPF] 1 /HPF (06/07/2013 09:05:46) UA Bacteria [None Seen /HPF] Occasional /HPF *NA* (06/07/2013 09:05:46) UA Sq Epi None Seen *NA* (06/07/2013 09:05:46) UA Mucus [None Seen /LPF] Few /LPF *NA* (06/07/2013 09:05:46) CHEMISTRY Most recent to oldest [Reference Range]: 1 2 3 Sodium Lvl [135-145 mEq/L] 142 mEq/L (06/08/2013 03:00:00) 136 mEq/L (06/07/2013 09:05:00) Potassium Lvl [3.5-5.1 mEq/L] 3.6 mEq/L (06/08/2013 03:00:00) 5.3 mEq/L *HI* (06/07/2013 09:05:00) Chloride Lvl [95-109 mEq/L] 105 mEq/L (06/08/2013 03:00:00) 103 mEq/L (06/07/2013 09:05:00) CO2 [24-32 mEq/L] 28 mEq/L (06/08/2013 03:00:00) 25 mEq/L (06/07/2013 09:05:00) AGAP [10.0-20.0 mEq/L] 12.6 mEq/L (06/08/2013 03:00:00) 13.3 mEq/L (06/07/2013 09:05:00) Creatinine Lvl [0.5-1.4 mg/dL] 1.3 mg/dL (06/08/2013 03:00:00) 0.9 mg/dL (06/07/2013 09:05:00) eGFR 55 mL/min/1.73m2 4 *NA* (06/08/2013 03:00:00) 85 mL/min/1.73m2 5 *NA* (06/07/2013 09:05:00) BUN [7-22 mg/dL] 15 mg/dL (06/08/2013 03:00:00) 13 mg/dL (06/07/2013 09:05:00) B/C Ratio [6-25] 12 (06/08/2013 03:00:00) Glucose Lvl [70-99 mg/dL] 177 mg/dL 6 *HI* (06/08/2013 03:00:00) 227 mg/dL 7 *HI* (06/07/2013 09:05:00) Total Protein [6.4-8.4 g/dL] 6.1 g/dL *LOW* (06/08/2013 03:00:00) Albumin Lvl [3.5-5.0 g/dL] 3.3 g/dL *LOW* (06/08/2013 03:00:00) Globulin [2.0-4.0 g/dL] 2.8 g/dL (06/08/2013 03:00:00) A/G Ratio [0.7-1.6] 1.2 (06/08/2013 03:00:00) Calcium Lvl [8.5-10.5 mg/dL] 8.1 mg/dL *LOW* (06/08/2013 03:00:00) 8.7 mg/dL (06/07/2013 09:05:00) ALT [0-65 unit/L] 22 unit/L (06/08/2013 03:00:00) AST [0-37 unit/L] 12 unit/L (06/08/2013 03:00:00) Alk Phos [39-136 unit/L] 55 unit/L (06/08/2013 03:00:00) Bili Total [0.2-1.3 mg/dL] 0.6 mg/dL (06/08/2013 03:00:00) Hgb A1C [<=5.6 %] 7.1 % *HI* (06/07/2013 09:05:03) 4Result Comment: The eGFR is calculated using [...] be mul tiplied by the estimated BMI. 5Result Comment: The eGFR is calculated using [...] be mul tiplied by the estimated BMI. 6Interpretive Data: Adult reference range values reflect the clinical guidelines of the [employer]. 7Interpretive Data: Adult reference range values reflect the clinical guidelines of the [employer]. HEMATOLOGY Most recent to oldest [Reference Range]: 1 2 3 WBC [3.7-10.4 K/CMM] 5.8 K/CMM (06/08/2013 03:00:00) 6.7 K/CMM (06/07/2013 09:05:00) RBC [4.70-6.10 M/CMM] 3.96 M/CMM *LOW* (06/08/2013 03:00:00) 4.49 M/CMM *LOW* (06/07/2013 09:05:00) Hgb [14.0-18.0 g/dL] 11.7 g/dL *LOW* (06/08/2013 03:00:00) 13.2 g/dL *LOW* (06/07/2013 09:05:00) Hct [42.0-54.0 %] 35.1 % *LOW* (06/08/2013 03:00:00) 39.9 % *LOW* (06/07/2013 09:05:00) MCV [80.0-94.0 fL] 88.6 fL (06/08/2013 03:00:00) 88.8 fL (06/07/2013 09:05:00) MCH [27.0-31.0 pg] 29.6 pg (06/08/2013 03:00:00) 29.4 pg (06/07/2013 09:05:00) MCHC [32.0-36.0 g/dL] 33.4 g/dL (06/08/2013 03:00:00) 33.2 g/dL (06/07/2013 09:05:00) RDW [11.5-14.5 %] 12.5 % (06/08/2013 03:00:00) 12.5 % (06/07/2013 09:05:00) Platelet [133-450 K/CMM] 173 K/CMM (06/08/2013 03:00:00) 186 K/CMM (06/07/2013 09:05:00) MPV [7.4-10.4 fL] 11.1 fL *HI* (06/08/2013 03:00:00) 10.4 fL (06/07/2013 09:05:00) Segs [45.0-75.0 %] 64.9 % (06/08/2013 03:00:00) 82.5 % *HI* (06/07/2013 09:05:00) Lymphocytes [20.0-40.0 %] 19.6 % *LOW* (06/08/2013 03:00:00) 8.8 % *LOW* (06/07/2013 09:05:00) Monocytes [2.0-12.0 %] 13.1 % *HI* (06/08/2013 03:00:00) 7.5 % (06/07/2013 09:05:00) Eosinophils [0.0-4.0 %] 2.0 % (06/08/2013 03:00:00) 0.6 % (06/07/2013 09:05:00) Basophils [0.0-1.0 %] 0.4 % (06/08/2013 03:00:00) 0.6 % (06/07/2013 09:05:00) Segs-Bands # [1.5-8.1 K/CMM] 3.8 K/CMM (06/08/2013 03:00:00) 5.5 K/CMM (06/07/2013 09:05:00) Lymphocytes # [1.0-5.5 K/CMM] 1.1 K/CMM (06/08/2013 03:00:00) 0.6 K/CMM *LOW* (06/07/2013 09:05:00) Monocytes # [0.0-0.8 K/CMM] 0.8 K/CMM (06/08/2013 03:00:00) 0.5 K/CMM (06/07/2013 09:05:00) Eosinophils # [0.0-0.5 K/CMM] 0.1 K/CMM (06/08/2013 03:00:00) 0.0 K/CMM (06/07/2013 09:05:00) Basophils # [0.0-0.2 K/CMM] 0.0 K/CMM (06/08/2013 03:00:00) 0.0 K/CMM (06/07/2013 09:05:00) PT [12.0-14.7 seconds] 13.4 seconds (06/07/2013 09:05:00) INR [0.85-1.17] 1.03 8 (06/07/2013 09:05:00) PTT [22.9-35.8 seconds] 26.4 seconds 9 (06/07/2013 09:05:00) 8Interpretive Data: RECOMMENDED RANGES FOR PROTIME INR: 2.0-3.0 for most medical and surgical thromboembolic states. 2.5-3.5 for artificial heart valves and recurrent embolism. INR SHOULD BE USED ONLY FOR PATIENTS ON STABLE ANTICOAGULANT THERAPY. 9Interpretive Data: Heparin Therapeutic Range: 57 - 92 Seconds
--- OUTSIDE RECORDS SUMMARY | 2018-08-02 05:59 | XMS REPORT | CCD ---
Author Author Auto Generated Organization [facility] Address Unknown Phone Unavailable Care Team Providers Care Shotblast Operator Name Role Phone Tiara Estrada RP Allergies, Adverse Reactions, Alerts Substance Reaction Status NKDA Active Medications Medication Instructions Start Date End Date Status glipiZIDE 10 mg oral 10 mg, 1 tab, PO, BID, 30 tab, 02/04/2012 Ordered tablet, extended Substitution Allowed release atorvastatin 20 mg 20 mg, 1 tab, PO, Daily, 30 tab, 02/04/2012 Ordered oral tablet Substitution Allowed, TAB metFORmin 850 mg, PO, TID, Substitution 02/04/2012 Ordered Allowed tamsulosin 0.4 mg 0.4 mg, 1 cap, PO, Daily, 30 cap, 02/04/2012 Ordered oral capsule Substitution Allowed, CAP Citrucel Substitution Allowed 02/04/2012 Ordered lisinopril 2.5 mg 2.5 mg, 1 tab, PO, Daily, 30 tab, 02/04/2012 Ordered oral tablet Substitution Allowed, TAB Plavix 75 mg oral 75 mg, 1 tab, PO, Daily, 30 tab, 02/04/2012 Ordered tablet Substitution Allowed, TAB Lactated Ringers IV 1,000 mL, Rate: 40 ml/hr, Infuse 02/09/2012 02/09/2012 Discontinued 1,000 mL 1,000 mL over: 25 hr, Route: IV, Dosing Weight 80.909 kg, Total Volume: 1,000, Start date: 02/09/12 8:58:00, Duration: 30 day, Stop date: 03/10/12 8:57:00 Vital Signs Most recent to oldest [Reference Range]: 1 2 3 Height 157.48 cm (02/04/2012 09:01:00) Systolic Blood Pressure [90-140 mmHg] 129 mmHg (02/09/2012 10:15:00) 122 mmHg (02/09/2012 10:00:00) 117 mmHg (02/09/2012 09:45:00) Diastolic Blood Pressure [60-90 mmHg] 73 mmHg (02/09/2012 10:15:00) 67 mmHg (02/09/2012 10:00:00) 62 mmHg (02/09/2012 09:45:00) Respiratory Rate [14-20 BRMIN] 18 BRMIN (02/09/2012 10:15:00) 16 BRMIN (02/09/2012 10:00:00) 16 BRMIN (02/09/2012 09:45:00) Peripheral Pulse Rate [60-100 bpm] 72 bpm (02/09/2012 10:15:00) 65 bpm (02/09/2012 10:00:00) 70 bpm (02/09/2012 09:45:00) Weight 80.909 kg (02/04/2012 09:01:00) Results CHEMISTRY Most recent to oldest [Reference Range]: 1 Sodium Lvl [135-145 mEq/L] 141 mEq/L (02/04/2012 10:55:00) Potassium Lvl [3.5-5.1 mEq/L] 4.7 mEq/L (02/04/2012 10:55:00) Chloride Lvl [95-109 mEq/L] 106 mEq/L (02/04/2012 10:55:00) CO2 [24-32 mEq/L] 23 mEq/L *LOW* (02/04/2012 10:55:00) AGAP [10.0-20.0 mEq/L] 16.7 mEq/L (02/04/2012 10:55:00) Creatinine Lvl [0.5-1.4 mg/dL] 1.3 mg/dL (02/04/2012 10:55:00) BUN [7-22 mg/dL] 15 mg/dL (02/04/2012 10:55:00) Glucose Lvl [70-99 mg/dL] 158 mg/dL 1 *HI* (02/04/2012 10:55:00) Calcium Lvl [8.5-10.5 mg/dL] 8.7 mg/dL (02/04/2012 10:55:00) 1Interpretive Data: Adult reference range values reflect the clinical guidelinesof the [place] Diabetes Association.
--- OUTSIDE RECORDS SUMMARY | 2018-08-02 06:00 | XMS REPORT | CCD ---
Author Author Auto Generated Organization [facility] Address Unknown Phone Unavailable Care Team Providers Care Bobbin Sorter Name Role Phone Glen Wilks CP Allergies, [...] 22:59:00, Stop date: 06/05/13 22:59:00(Same as:MORPhine Sulfate) Zofran 4 mg, 2 mL, Route: IVP, Drug form: 06/05/2013 06/05/2013 Completed INJ, ONCE, Dosing Weight 81.818, kg, Priority: STAT, Start date: 06/05/13 22:23:00, Stop date: 06/05/13 22:23:00(Same as: Zofran) Tylenol with Codeine 1 - 2 tab, PO, Q4H, PRN, 20 tab, 06/05/2013 06/07/2013 Completed #3 oral tablet Pain, Substitution Allowed, Maintenance morphine Sulfate 2 mg, 1 mL, Route: IVP, Drug form: 06/05/2013 06/05/2013 Completed INJ, ONCE, Dosing Weight 81.818, kg, Priority: STAT, Start date: 06/05/13 22:23:00, Stop date: 06/05/13 22:23:00(Same as:MORPhine Sulfate) pneumococcal 0.5 ml, Route: IM, Drug Form: [...] (06/05/2013 21:40:00) AGAP [10.0-20.0 mEq/L] 14.1 mEq/L (06/05/2013:40:00) Creatinine Lvl [0.5-1.4 mg/dL] 1.2 mg/dL (06/05/2013:40:00) eGFR 60 mL/min/1.73m2 1 *NA* (06/05/2013:40:00) BUN [...] values reflect the clinical guidelines of the [place] Diabetes [employer]. HEMATOLOGY Most recent to oldest [Reference Range]: 1 WBC [3.7-10.4 K/CMM] 8.0 K/CMM (06/05/2013:40:00) RBC [4.70-6.10 M/CMM] 4.33 M/CMM *LOW* (06/05/2013:40:00) Hgb [14.0-18.0 g/dL] 12.9 g/dL *LOW* (06/05/2013:40:00) Hct [42.0-54.0 %] 39.0 % *LOW* (06/05/2013:40:00) MCV [80.0-94.0 fL] 90.1 fL (06/05/2013 21:40:00) MCH [27.0-31.0 pg] 29.8 pg (06/05/2013 21:40:00) [...]
--- OUTSIDE RECORDS SUMMARY | 2018-08-02 06:00 | XMS REPORT | CCD ---
Author Author Auto Generated Organization [facility] Address Unknown Phone Unavailable Care Team Providers Care Insurance Claims Supervisor Name Role Phone Glen Wilks CP Allergies, [...] values reflect the clinical guidelines of the [place] [employer]. HEMATOLOGY Most recent to oldest [...]
--- OUTSIDE RECORDS SUMMARY | 2018-08-02 06:00 | XMS REPORT | CCD ---
Author Author Auto Generated Organization [facility] Address Unknown Phone Unavailable Care Team Providers Care Senior Strategy Analyst Name Role Phone Glen Wilks CP Allergies, [...] values reflect the clinical guidelines of the [place] Diabetes [employer]. HEMATOLOGY Most recent to oldest [...] # [0.0-0.2 K/CMM] 0.1 K/CMM (06/05/2013 21:40:00) Procedures Procedures Date Related Diagnosis Emergency department visit for the evaluation and management 06/06/2013 00:00:00 of a patient, which requires these 3 villavicencio components within the constraints imposed by the urgency of the patient's clinical condition and/or mental status: A comprehensive history; A comprehensi Therapeutic, prophylactic, or diagnostic injection (specify 06/05/2013 00:00:00 substance or drug); each additional sequential intravenous push of a new substance/drug (List separately in addition to code for primary procedure) Therapeutic, prophylactic, or diagnostic injection (specify 06/05/2013 00:00:00 substance or drug); each additional sequential intravenous push of the same substance/drug provided in a facility (List separately in addition to code for primary procedure) Therapeutic, prophylactic, or diagnostic injection (specify 06/05/2013 00:00:00 substance or drug); intravenous push, single or initial substance/drug
--- OUTSIDE RECORDS SUMMARY | 2018-08-02 06:00 | XMS REPORT | CCD ---
Author Author Auto Generated Organization [facility] Address Unknown Phone Unavailable Care Team Providers Care Property Site Manager Name Role Phone Jermaine Jung CP Allergies, [...] Duration: 30 day, Stop date: 07/07/13 17:00:00 [place] 5/325 oral 2 tab, Route: PO, Drug Form: TAB, 06/08/2013 06/09/2013 Discontinued tablet Dosing Weight 80.9, kg, Q6H, PRN Pain, Start date: 06/08/13 10:02:00, Duration: 30 day, Stop date: 07/08/13 10:01:00(Same as: [place] 325/5) Do not exceed 4gm/day of acetaminophen. [place] 5/325 oral 1 tab, Route: PO, Drug Form: TAB, 06/08/2013 06/09/2013 Discontinued tablet Dosing Weight 80.9, kg, Q6H, PRN Pain, Start date: 06/08/13 10:02:00, Duration: 30 day, Stop date: 07/08/13 10:01:00(Same as: [place] 325/5) Do not exceed 4gm/day of acetaminophen. [...] SUB-Q, Drug 06/07/2013 06/09/2013 Discontinued form: INJ, [id number], Dosing Weight 80.9, kg, Start date: 06/07/13 [...] values reflect the clinical guidelines of the [place] Diabetes [employer]. 7Interpretive Data: Adult reference range values reflect the clinical guidelines of the [place] [employer]. HEMATOLOGY Most recent to oldest [...]
--- OUTSIDE RECORDS SUMMARY | 2018-08-02 06:00 | XMS REPORT | CCD ---
Author Author Auto Generated Organization [facility] Address Unknown Phone Unavailable Care Team Providers Care Veterans Service Officer Name Role Phone Glen Wilks CP Allergies, [...] values reflect the clinical guidelines of the [place] Diabetes [employer]. HEMATOLOGY Most recent to oldest [...]
--- OUTSIDE RECORDS SUMMARY | 2018-08-02 06:01 | XMS REPORT | Summary of Care ---
Author Author [facility] Organization [facility] Address Unknown Phone Unavailable Encounter KITTY Tomlinson(NINO) [id number] Date(s): 01/15/16 - 01/15/16 [facility] [address] [place] [address]- Discharge Disposition: Home Attending Physician: Terri Baez MD Referring Physician: Terri Baez MD Vital Signs 1 2 3 Most recent to oldest [Reference Range]: 160.02 cm (01/08/16 7:31 AM) Height 97.5 DegF (01/08/16 7:34 AM) Temperature Oral [96.4-99.1 DegF] 126/62 mmHg (01/15/16 3:15 PM) 121/61 mmHg (01/15/16 2:30 PM) 133/69 mmHg (01/15/16 2:14 PM) Blood Pressure [90-140/60-90 mmHg] 14 BRMIN (01/15/16 3:15 PM) 13 BRMIN *LOW* (01/15/16 2:30 PM) 17 BRMIN (01/15/16 2:14 PM) Respiratory Rate [14-20 BRMIN] 60 bpm (01/08/16 7:34 AM) Peripheral Pulse Rate [60-100 bpm] 85 kg (01/08/16 7:31 AM) Weight 33.19 m2 (01/08/16 7:31 AM) Body Mass Index Problem List Condition Effective Dates Status Health Status Informant Bleeding internal 12/18/11 Active hemorrhoids1, 2 BPH - Benign Active prostatic hypertrophy(Confirme d) CAD - Coronary Active artery disease(Confirmed) DM - Diabetes Active mellitus(Confirmed) Heart Active murmur(Confirmed) HTN - Active Hypertension(Confirm ed) Obesity(Confirmed) Active Rectal hemorrhage3, 12/18/11 Active 4 Residual 12/18/11 Active hemorrhoidal skin tags5, 6 1Data migrated from [employer] on 01/28/15. 2Data migrated from [employer] on 01/28/15. 3Data migrated from [employer] on 01/28/15. 4Data migrated from [employer] on 01/28/15. 5Data migrated from [employer] on 01/28/15. 6Data migrated from [employer] on 01/28/15. Allergies, Adverse Reactions, Alerts Substance Reaction Severity Status NKDA Active Medications acetaminophen (ANES) (ANES) Route: IV, Drug form: INJ, Start date: 01/15/16 12:25:00 CDT, Stop date: 6 13:25:00 CDT Start Date: 01/15/16 Stop Date: 01/15/16 Status: Completed Aspirin Low Dose 81 mg oral tablet =1 tab, PO, Daily, # 30 tab, 1 Refill(s) Start Date: 01/08/16 Status: Ordered Dextrose 5% with 0.9% NaCl IV 1000 mL 1,000 mL, Rate: 25 ml/hr, Infuse over: 40 hr, Route: IV, Dosing Weight 85 kg, To shawna Volume: 1,000, Start date: 01/15/16 11:15:00 CDT, Duration: 30 day, Stop galo e: 02/14/16 11:14:00 CDT Start Date: 01/15/16 Stop Date: 01/15/16 Status: Discontinued Exparel 20 mL, Route: InFILtration(local), Drug Form: INJ, Dosing Weight 85, kg, ONCALL, For Hemorrhoidectomy, Start date: 01/15/16 7:00:00 CDT, Duration: 30 day, Stop date: 02/14/16 6:59:00 CDT Notes: (Same as: Exparel) NOT FOR IV use Postoperative analgesia: Infi ltration (local): Dose is based on surgical site and volume required to cover th e area (in general, the maximum total dose is 266 mg).Bunionectomy: 7 mL into th e tissues surrounding the osteotomy and 1 mL into the subcutaneous tissue of the surgical site (total dose=8 mL [106 mg])Hemorrhoidectomy: 30 mL (20 mL vial dil uted with 10 mL NS) divided and administered as 6 injections of 5 mL each (total dose=30 mL [266 mg]) Start Date: 01/15/16 Stop Date: 01/16/16 Status: Discontinued fentaNYL (ANES) Route: IV, Drug form: INJ, ONCE, Stop date: 01/15/16 13:00:00 CDT Start Date: 01/15/16 Stop Date: 01/15/16 Status: Completed ketOROLAC (ANES) IV, ONCE Start Date: 01/15/16 Stop Date: 01/15/16 Status: Completed Lactated Ringers Injection IV (ANES) (ANES) Route: IV, Total Volume: 500, Start date: 01/15/16 12:10:00 CDT, Stop date: 12/28 04/14 13:10:00 CDT Start Date: 01/15/16 Stop Date: 01/15/16 Status: Completed Lactated Ringers Injection IV 500 mL 500 mL, Rate: 25 ml/hr, Infuse over: 20 hr, Route: IV, Dosing Weight 85 kg, Tota l Volume: 500, Start date: 01/15/16 11:15:00 CDT, Duration: 30 day, Stop date: 02/14/16 11:14:00 CDT Start Date: 01/15/16 Stop Date: 01/15/16 Status: Discontinued Lantus 100 units/mL 20 unit, SUB-Q, Bedtime, # 10 mL, 3 Refill(s) Start Date: 01/08/16 Status: Ordered lidocaine (ANES) Route: IV, Drug form: INJ, ONCE, Stop date: 01/15/16 12:55:00 CDT Start Date: 01/15/16 Stop Date: 01/15/16 Status: Completed midazolam (ANES) Route: IV, Drug form: SOLN, ONCE, Stop date: 01/15/16 12:55:00 CDT Start Date: 01/15/16 Stop Date: 01/15/16 Status: Completed Normosol-R PH 7.4 1000 mL 1,000 mL, Rate: 25 ml/hr, Infuse over: 40 hr, Route: IV, Dosing Weight 85 kg, To shawna Volume: 1,000, Start date: 01/15/16 11:15:00 CDT, Duration: 30 day, Stop galo e: 02/14/16 11:14:00 CDT Start Date: 01/15/16 Stop Date: 01/15/16 Status: Discontinued ondansetron (ANES) Route: IV, Drug form: INJ, ONCE, Stop date: 01/15/16 13:00:00 CDT Start Date: 01/15/16 Stop Date: 01/15/16 Status: Completed propofol (ANES) Route: IV, Drug form: INJ, ONCE, Stop date: 01/15/16 12:55:00 CDT Start Date: 01/15/16 Stop Date: 01/15/16 Status: Completed Sodium Chloride 0.9% IV 500 mL 500 mL, Rate: 125 ml/hr, Infuse over: 4 hr, Route: IV, Dosing Weight 85 kg, Tota l Volume: 500, Start date: 01/15/16 11:15:00 CDT, Duration: 30 day, Stop date: 0 02/14/16 11:14:00 CDT Start Date: 01/15/16 Stop Date: 01/15/16 Status: Discontinued Tylenol with Codeine #3 oral tablet 1 tab, PO, Q6H, PRN for pain, # 30 tab, 0 Refill(s) Start Date: 01/15/16 Stop Date: 01/25/16 Status: Ordered Results ELECTROLYTES Most recent to 1 oldest [Reference Range]: Sodium Lvl [135-145 137 mEq/L mEq/L] (01/08/16 8:11 AM) Potassium Lvl 4.8 mEq/L [3.5-5.1 mEq/L] (01/08/16 8:11 AM) Chloride Lvl [95-109 104 mEq/L mEq/L] (01/08/16 8:11 AM) CO2 [24-32 mEq/L] 25 mEq/L (01/08/16 8:11 AM) AGAP [10.0-20.0 12.8 mEq/L mEq/L] (01/08/16 8:11 AM) CHEM PANEL Most recent to 1 oldest [Reference Range]: Creatinine Lvl 1.15 mg/dL [0.50-1.40 mg/dL] (01/08/16 8:11 AM) eGFR 62 mL/min/1.73m2 1 *NA* (01/08/16 8:11 AM) BUN [7-22 mg/dL] 17 mg/dL (01/08/16 8:11 AM) Glucose Lvl [70-99 163 mg/dL mg/dL] *HI* (01/08/16 8:11 AM) Calcium Lvl 8.5 mg/dL [8.5-10.5 mg/dL] (01/08/16 8:11 AM) 1Result Comment: The eGFR is calculated using [...] be mul tiplied by the estimated BMI. HEMATOLOGY Most recent to 1 oldest [Reference Range]: Hgb [14.0-18.0 g/dL] 12.6 g/dL *LOW* (01/08/16 8:11 AM) Hct [42.0-54.0 %] 37.5 % *LOW* (01/08/16 8:11 AM) PT [12.0-14.7 13.3 seconds seconds] (01/08/16 8:11 AM) INR [0.85-1.17] 0.98 (01/08/16 8:11 AM) PTT [22.9-35.8 29.7 seconds seconds] (01/08/16 8:11 AM) Immunizations Vaccine Date Refusal Reason influenza virus vaccine, inactivated 06/08/13 pneumococcal 23-valent vaccine 06/08/13 Procedures Procedure Date Related Diagnosis Body Site Balloon angioplasty of coronary artery Right colectomy Tonsillectomy and adenoidectomy Social History Social History Type Response Alcohol Never Smoking Status Never smoker; Exposure to Tobacco Smoke None; Cigarette Smoking Last 365 Days No; Reg Smoking Cessation Counseling No Assessment and Plan Extracted from: Title: Clinical Document Author: Terri Baez MD Date: 01/15/16 COLON & RECTAL SURGERY OFFICE NOTE: TERRI BAEZ MD, FACS, FASCRS CC: Consultation for colonoscopy and hemorrhoids HPI: The patient is well known to my service. He is status post right colectomy for tubulovillous adenoma in 2008 by another [address] surgeon Dr. Purvis, he then underwent a colonoscopy in 2009. The report of this is not available. She also had a colonoscopy by my service in 2013 and he was found to have hyperplastic polyps. In addition the patient developed chronic hemorrhoidal discomfort with prolapsing hemorrhoids. He is due for a repeat colonoscopy in he strongly desires to undergo treatment for the hemorrhoids at the same time. ROS: Constitutional Symptoms: no fever, no weight loss, no weight gain, no fatigue, no malaise Eyes: no diplopia, no blurred vision, no redness, no discharge, no loss of vision Ears, Nose, Mouth, Throat: no dysphagia, no odynophagia, no otalgia, no deafness, no rhinorrhea Cardiovascular: no chest pain, no SOB, no VALENTE, no orthopnea, no PND, exercise tolerated, no palpitations Respiratory: same as CVS, no cough, no hemoptysis Gastrointestinal: no NVD, no BPR, no dark stool, no constipation, no abdominal pain Genitourinary: no dysuria, no frequency, no urgency, no nocturia, no incontinence Musculoskeletal: no arthralgia, no myalgia, no stiffness Integumentary: (skin and/or breast): no rash, no hives, no breast pain, no mass, no nipple dc Neurological: no weakness, no headache, no seizure, no dizziness, no tingling, no numbness Psychiatric: no anxiety, no depression, no insomnia Endocrine: no polyuria, no polydipsia, no fatigue, no weight loss, no weight gain, no cold or heat intolerance, no palpitations Hematologic/Lymphatic: no bleeding, no bruising, no edema, no lumps (axilla groin neck) Allergic/Immunologic: no rash, no allergies, no fever, no chills PMH: Right colectomy HTN - Hypertension Alcohol Details: Never Tobacco Details: Use: Never smoker. Tobacco smoke exposure: None. Did the Patient Smoke Cigarettes Anytime During the Last 365 Days? No. Cessation Counseling Provided? No. No qualifying data available Medication List Active Medications Documented atorvastatin: 20 mg, 1 tab, PO, Daily, 30 tab. exenatide: 10 microgram, SUB-Q, BID, 2 ml. ferrous sulfate: 325 mg, 1 tab, PO, Daily, 30 tab. glipiZIDE: 10 mg, 1 tab, PO, BID, with breakfast and dinner, 30 tab. lisinopril: 2.5 mg, 1 tab, PO, Daily, 30 tab. metFORmin: 850 mg, PO, TID. methylcellulose: 500 mg, PO, Daily. tamsulosin: 0.4 mg, 1 cap, PO, QPM, 30 cap. timolol ophthalmic: 1 drp, BOTH EYES, QAM. travoprost ophthalmic: 1 drp, BOTH EYES, QPM, 3 ml. Medications Inactivated in the Last 72 Hours No medications found. Allergies: NKDA PHYSICAL EXAM: VitalsTmp(F)[id number] 12/04 15:0697.035310/66-------- 24 Hr Tmax: 97.6F (36.44c) at 12/04 15:06Vital Signs are the last 5 in the past 48 hours. No qualifying data available.No qualifying data available.No qualifying data available.No qualifying data available.No qualifying data available. General: Well developed, well nourished, in no acute distress. Head & Neck: Normocephalic, neck supple, no palpable thyroid masses. Eyes: Extra ocular muscles intact, sclera anicteric, pupils within normal limits. Ear, Nose, & Throat: No abnormalities noted. Cardiovascular: Regular rate and rhythm, no murmurs or gallop. No peripheral edema. Respiratory: Rises symmetrically, clear to auscultation, no wheezes or ronchi. Genitourinary: Normal genitalia. Extremities: Normal gait, muscle tone, and range of motion, no cyanosis or tenderness. Skin: Normal color, turgor, no rash or cyanosis. Lymphatic: No palpable lymph nodes. Neurologic: Normal sensation and strength, normal gait and speech, moves all extremities. Psychiatric: Alert and oriented, normal judgment, mood and affect. Abdomen is soft nontender in all quadrands, nondistended, there is no organomegaly, no masses, no rebound, no peritonitis, no inguinal adenopathy Anorectal: Inspection and anoscopy reveals a right and left lateral large skin tags measuring 3 x 3 cm each and grade 3 internal hemorrhoids in each side. Rigid proctoscopy reveals normal rectum with no mucosal lesions, Brown stool no bleeding. ASSESSMENT & PLAN: I recommend to proceed with a colonoscopy and at the same time we can perform excision of the skin tags and ligated internal hemorrhoids with hemorrhoidal pexy. He understands and he agrees with the plan. We had a thorough discussion regarding the colonoscopy procedure. The risks, benefits, and alternatives of the procedure were discussed in detail. Some of the risks discussed included, but were not limited to bleeding, infection, and perforation. The statistical data reviewed included the report of approximately 1 in 1000 cases of perforation and 3 in 1000 cases of bleeding. The importance of cessation of aspirin use or any other blood thinner was also discussed. In addition the colonoscopy prep was reviewed and a copy of the preparation handout was given. All questions were answered to the patient's satisfaction and the patient agrees to proceed. The risks, benefits, and alternatives were discussed with the patient. The risks include, but are not limited to, pain, bleeding, infection, fecal incontinence, anal stenosis, anal fistula, urinary retention, persistent or recurrent of condition need for further surgery, and perioperative cardiopulmonary complications. I answered all questions to the patient s questions. The patient agrees to proceed. Total exam, coordination of care, and time spent educating the patient > 30 minutes
--- OUTSIDE RECORDS SUMMARY | 2018-08-02 06:01 | XMS REPORT | Summary of Care ---
Author Author [facility] Organization [facility] Address Unknown Phone Unavailable Encounter KITTY Tomlinson(NINO) [id number] Date(s): 01/29/16 - 01/29/16 [facility] [address] [place] [address]- [phone] Discharge Disposition: Home Attending Physician: Prashanth Malin MD Referring Physician: Prashanth Malin MD Vital Signs No data available for this section Problem List Condition Effective Dates Status Health [...] Substance Reaction Severity Status NKDA Active Medications No data available for this section Results No data available for this section Immunizations Vaccine Date Refusal Reason influenza virus vaccine, inactivated 06/08/13 pneumococcal 23-valent vaccine 06/08/13 Procedures Procedure Date Related Diagnosis Body Site Balloon angioplasty of coronary artery Right colectomy Tonsillectomy and adenoidectomy Social History Social History Type Response Alcohol Never Smoking Status Never smoker; Exposure to Tobacco Smoke None; Cigarette Smoking Last 365 Days No; Reg Smoking Cessation Counseling No Assessment and Plan No data available for this section
--- OUTSIDE RECORDS SUMMARY | 2018-08-02 06:01 | XMS REPORT | CCD ---
Author Author Auto Generated Organization [facility] Address Unknown Phone Unavailable Care Team Providers Care Regulatory Affairs Strategy Specialist Name Role Phone Jermaine Jung CP Allergies, [...] Duration: 30 day, Stop date: 07/07/13 17:00:00 [place] 5/325 oral 2 tab, Route: PO, Drug Form: TAB, 06/08/2013 06/09/2013 Discontinued tablet Dosing Weight 80.9, kg, Q6H, PRN Pain, Start date: 06/08/13 10:02:00, Duration: 30 day, Stop date: 07/08/13 10:01:00(Same as: [place] 325/5) Do not exceed 4gm/day of acetaminophen. [place] 5/325 oral 1 tab, Route: PO, Drug Form: TAB, 06/08/2013 06/09/2013 Discontinued tablet Dosing Weight 80.9, kg, Q6H, PRN Pain, Start date: 06/08/13 10:02:00, Duration: 30 day, Stop date: 07/08/13 10:01:00(Same as: [place] 325/5) Do not exceed 4gm/day of acetaminophen. [...] SUB-Q, Drug 06/07/2013 06/09/2013 Discontinued form: INJ, [id number], Dosing Weight 80.9, kg, Start date: 06/07/13 [...] values reflect the clinical guidelines of the [place] [employer]. 7Interpretive Data: Adult reference range values reflect the clinical guidelines of the [place] [employer]. HEMATOLOGY Most recent to oldest [...]
--- OUTSIDE RECORDS SUMMARY | 2018-08-02 06:01 | XMS REPORT | CCD ---
Author Author Auto Generated Organization [facility] Address Unknown Phone Unavailable Care Team Providers Care High School Science Tutor Name Role Phone Jermaine Jung CP Allergies, [...] Duration: 30 day, Stop date: 07/07/13 17:00:00 [place] 5/325 oral 2 tab, Route: PO, Drug Form: TAB, 06/08/2013 06/09/2013 Discontinued tablet Dosing Weight 80.9, kg, Q6H, PRN Pain, Start date: 06/08/13 10:02:00, Duration: 30 day, Stop date: 07/08/13 10:01:00(Same as: [place] 325/5) Do not exceed 4gm/day of acetaminophen. [place] 5/325 oral 1 tab, Route: PO, Drug Form: TAB, 06/08/2013 06/09/2013 Discontinued tablet Dosing Weight 80.9, kg, Q6H, PRN Pain, Start date: 06/08/13 10:02:00, Duration: 30 day, Stop date: 07/08/13 10:01:00(Same as: [place] 325/5) Do not exceed 4gm/day of [...] SUB-Q, Drug 06/07/2013 06/09/2013 Discontinued form: INJ, [id number], Dosing Weight 80.9, kg, Start date: 06/07/13 [...] values reflect the clinical guidelines of the [place] [employer]. 7Interpretive Data: Adult reference range values reflect the clinical guidelines of the [place] [employer]. HEMATOLOGY Most recent to oldest [...]
--- OUTSIDE RECORDS SUMMARY | 2018-08-02 06:01 | XMS REPORT | CCD ---
Author Author Auto Generated Organization [facility] Address Unknown Phone Unavailable Care Team Providers Care [employer] Engineer Name Role Phone Jermaine Jung CP Allergies, [...] Duration: 30 day, Stop date: 07/07/13 17:00:00 [place] 5/325 oral 2 tab, Route: PO, Drug Form: TAB, 06/08/2013 06/09/2013 Discontinued tablet Dosing Weight 80.9, kg, Q6H, PRN Pain, Start date: 06/08/13 10:02:00, Duration: 30 day, Stop date: 07/08/13 10:01:00(Same as: [place] 325/5) Do not exceed 4gm/day of acetaminophen. [place] 5/325 oral 1 tab, Route: PO, Drug Form: TAB, 06/08/2013 06/09/2013 Discontinued tablet Dosing Weight 80.9, kg, Q6H, PRN Pain, Start date: 06/08/13 10:02:00, Duration: 30 day, Stop date: 07/08/13 10:01:00(Same as: [place] 325/5) Do not exceed 4gm/day of acetaminophen. [...] SUB-Q, Drug 06/07/2013 06/09/2013 Discontinued form: INJ, [id number], Dosing Weight 80.9, kg, Start date: 06/07/13 [...] values reflect the clinical guidelines of the [place] [employer]. 7Interpretive Data: Adult reference range values reflect the clinical guidelines of the [place] [employer]. HEMATOLOGY Most recent to oldest [...] Heparin Therapeutic Range: 57 - 92 Seconds Procedures Procedures Date Related Diagnosis Emergency department visit for the evaluation and management 06/07/2013 00:00:00 of a patient, which requires these 3 villavicencio components within the constraints imposed by the urgency of the patient's clinical condition and/or mental status: A comprehensive history; A comprehensi
--- OUTSIDE RECORDS SUMMARY | 2018-08-02 06:02 | XMS REPORT | Summary of Care ---
Author Author [facility] Organization [facility] Address Unknown Phone Unavailable Encounter KITTY Tomlinson(NINO) [id number] Date(s): 02/03/17 - 02/03/17 [facility] [address] [place] [address]- [phone] Discharge Disposition: Home or Self Care Attending Physician: Katerin Vanegas DO Referring Physician: Katerin Vanegas DO Vital Signs No data available for this [...] No data available for this section Results CHEM PANEL Most recent to 1 oldest [Reference Range]: eGFR 65 mL/min/1.73m2 1 *NA* (02/03/17 9:44 AM) POC Creatinine 1.1 mg/dL [0.5-1.4 mg/dL] (02/03/17 9:44 AM) 1Result Comment: The eGFR is calculated [...] be mul tiplied by the estimated BMI. Immunizations Given and Recorded Vaccine Date Status Refusal Reason influenza virus vaccine, inactivated 06/08/13 Given pneumococcal 23-valent vaccine 06/08/13 Given Procedures Procedure Date Related Diagnosis Body Site Operation1 01/15/16 Balloon angioplasty of coronary artery Right colectomy Tonsillectomy and adenoidectomy 1Ligation of internal hemorrhoids with hemorrhoidopexy and excision of anal skin tag x 2 Social History Social History Type Response Alcohol Never Smoking Status Never smoker; Exposure to Tobacco Smoke None; Cigarette Smoking Last 365 Days No; Reg Smoking Cessation Counseling No Assessment and Plan No data available for this section
== END | disposition home or self-care (01) ==
LOC: OR 05:15
PROVIDERS: ATTEND Internal Medicine Gastroenterology
DX: D64.9 Anemia, unspecified (principal); K29.80 Duodenitis without bleeding; K31.7 Polyp of stomach and duodenum; K57.90 Diverticulosis of intestine, part unspecified, without perforation or abscess without bleeding; K59.09 Other constipation; G47.33 Obstructive sleep apnea (adult) (pediatric); I25.10 Atherosclerotic heart disease of native coronary artery without angina pectoris; I10 Essential (primary) hypertension; E78.5 Hyperlipidemia, unspecified; E11.9 Type 2 diabetes mellitus without complications; M19.90 Unspecified osteoarthritis, unspecified site; Z01.810 Encounter for preprocedural cardiovascular examination; Z79.82 Long term (current) use of aspirin; Z79.84 Long term (current) use of oral hypoglycemic drugs; Z68.33 Body mass index [BMI] 33.0-33.9, adult; Z85.828 Personal history of other malignant neoplasm of skin; Z95.5 Presence of coronary angioplasty implant and graft
CPT/HCPCS: 36415; 43239; 82948; 88305; 88312; 93005; J2250